=== PATIENT | female | born 1945 | race Caucasian/White ===

== ENCOUNTER 2017-12-20 07:52 | Inpatient (IN) | payer MEDICARE, BC ==
[2017-12-20] VITALS (8 sets, daily range): BP systolic 137–148; BP diastolic 54–86
[~2017-12-20] VITALS: Ht 165.1 cm; Wt 72.6 kg
--- NOTE | ~2017-12-20 | MORECARE ---
CASE MANAGEMENT DISCHARGE SUMMARY PATIENT: JULISSA GARCIA UNIT: [id number] ADM DATE: 12/20/17 AGE: 72 : 43 SEX: F ROOM/BED: D.2207 AUTHOR: YOAV SHERMAN PHYSICIAN: REFERRING PHYSICIAN: CHRIS ROMAN MD DATE OF SERVICE: 01/02/18 Discharge Plan Patient Name: JULISSA GARCIA Facility: [facility]:[place] : 1945 Planned Disposition: Home with Home Health Anticipated Discharge Date: 12/22/17 Discharge Date: Expected LOS: 2 Initial Reviewer: [email or web address] Initial Review Date: 12/20/2017 Generated: 01/02/18 3:03 pm Comments DCP- Discharge Planning Updated by [email or web address]: Sarahi Rios on 01/02/18 1:[address] Called and spoke with Korin at the [facility] faxed clinical to her, they will pick her up tomorrow DCP- Discharge Planning Updated by [email or web address]: Sarahi Rios on 01/02/18 12:[address] patient discharging home today with [facility] to resume. Family at bedside. imm served and explained. cm will continue to follow and assist with dc as needed DCP- Discharge Planning Updated by [email or web address]: Indira Kaufman on 12/30/17 12:[address] Patient Name: JULISSA GARCIA Admission Status: ER Accout number: [id number] Admission Date: 12-20-2017 : 1945 Admission Diagnosis:HEPATOMEGALY, NOT ELSEWHERE CLASSIFIED Attending: CHRIS ROMAN Current LOS: 10 Anticipated DC Date: 12-22-2017 Planned Disposition: Home with Home Health Primary Insurance: MEDICARE A & B Discharge Planning Comments: CM MET WITH PATIENT ABOUT DC PLANNING. PLAN TO DC HOME TOMORROW WITH [facility]. CM CALLEDED AND SPOKE WITH KINDRA ECHAVARRIA AT [facility] AND SHE STATED TO FAX REFERRAL. REFERRAL FAXED. IM SIGNED. I ALSO TALKED WITH HER ABOUT HOSPICE, SHE MAY BE INTERESTED BUT NO FAMILY THERE AT THE TIME. CM WILL FOLLOW AND ASSIST NEEDED WITH DC PLANNING/NEEDS. Journalism Professor: Indira Kaufman DCP- Discharge Planning Updated by [email or web address]: Jessica Gaines on 12/20/17 1:[address] Patient Name: JULISSA GARCIA Admission Status: ER Accout number: [id number] Admission Date: 12-20-2017 : 1945 Admission Diagnosis: Attending: CHRIS ROMAN Current LOS: 1 Anticipated DC Date: 12-22-2017 Planned Disposition: Home Primary Insurance: MEDICARE A & B Discharge Planning Comments: CM met with patient and her daughter, Marissa Bernal, to complete initial dc planning assessment. CM educated patient on the CM role and verbal consent given by patient to complete assessment. Patient lives at home independently with her . At discharge patient plans to return home with her if able, and feels this is a safe discharge. Patient and daughter unsure what will be needed at time of discharge. CM will continue to follow and will assist as needed with dc plans/needs. See below for more assessment information. Is the patient Alert and Oriented? Yes * How many steps to enter\exit or inside your home? none * PCP Dr. Munoz * [facility] in [place] * Preadmission Environment Home with Family * ADLs Independent * Equipment None * List name and contact numbers for known caregivers / representatives who currently or will assist patient after discharge: Kareem Paula - [phone] Marissa Paula daughter - [phone] * Verbal permission to speak to the caregivers and representatives has been obtained from the patient. Yes * Community resources currently utilized None * Has this patient been hospitalized within the prior 30 days at any hospital? No Journalism Professor: Jessica Gaines RN, [facility] DCPIA - Discharge Planning Initial Assessment Updated by [email or web address]: Jessica Gaines on 12/20/17 2:51 pm * Is the patient Alert and Oriented? Yes * How many steps to enter\exit or inside your home? none * PCP Dr. Munoz * [facility] in [place] * Preadmission Environment Home with Family * ADLs Independent * Equipment None * List name and contact numbers for known caregivers / representatives who currently or will assist patient after discharge: Kareem Paula - [phone] Marissa Paula daughter - [phone] * Verbal permission to speak to the caregivers and representatives has been obtained from the patient. Yes * Community resources currently utilized None * Has this patient been hospitalized within the prior 30 days at any hospital? No Coverage Notice Reviewer: [email or web address] Chai Kaufman Notice Issued Date-Time: 12/30/2017 13:50 Notice Type: Patient Choice Letter Notice Delivered To: Patient Relationship to Patient: Self Hand Nailer Name: Delivery Method: HAND - Hand Delivered Natty Days: Prior Verbal Notification: Recipient Understood Notice: Yes Recipient Signature: Yes Med Rec Note Co-signed by Attending: Coverage Notice Comment: RUSSELL CHAD Reviewer: [email or web address] Chai Kaufman Notice Issued Date-Time: 12/30/2017 13:50 Notice Type: IM Discharge Notice Notice Delivered To: Patient Relationship to Patient: Self Hand Nailer Name: Delivery Method: HAND - Hand Delivered Natty Days: Prior Verbal Notification: Recipient Understood Notice: Yes Recipient Signature: Yes Med Rec Note Co-signed by Attending: Coverage Notice Comment: Reviewer: [email or web address] Chai Rios Notice Issued Date-Time: 01/02/2018 13:00 Notice Type: IM Discharge Notice Notice Delivered To: Patient Relationship to Patient: Hand Nailer Name: Delivery Method: HAND - Hand Delivered Natty Days: Prior Verbal Notification: Recipient Understood Notice: Yes Recipient Signature: Yes Med Rec Note Co-signed by Attending: Coverage Notice Comment: Last DP export: 01/02/18 12:12 Patient Name: JULISSA GARCIA Page 22775 at 1404 All edits/amendments must be made on the electronic document DICTATION DATE: 01/02/18 1403 MEDICAL RECORDS COORDINATOR: STACY 01/02/18 1403 RPT#: [id number] DC DATE: STATUS: ADM IN [facility] [address] [place] [address] END OF REPORT
--- NOTE | ~2017-12-20 | MORECARE ---
CASE MANAGEMENT DISCHARGE SUMMARY PATIENT: JULISSA CAMP UNIT: [id number] ADM DATE: 12/20/17 AGE: 72 : 43 SEX: F ROOM/BED: D.2209 AUTHOR: YOAV SHERMAN PHYSICIAN: REFERRING PHYSICIAN: CHRIS ROMAN MD DATE OF SERVICE: 12/30/17 Discharge Plan Patient Name: JULISSA CAMP Facility: [facility]:[place] : 1945 Planned Disposition: Home with Home Health Anticipated Discharge Date: 12/22/17 Discharge Date: Expected LOS: 2 Initial Reviewer: [email or web address] Initial Review Date: 12/20/2017 Generated: 12/30/17 2:53 pm DCP- Discharge Planning Updated by [email or web address]: Jessica Gaines on 12/20/17 1:[address] Patient Name: JULISSA CAMP Admission Status: ER Accout number: [id number] Admission Date: 12-20-2017 : 1945 Admission Diagnosis: Attending: CHRIS ROMAN Current LOS: 1 Anticipated DC Date: 12-22-2017 Planned Disposition: Home Primary Insurance: MEDICARE A & B Discharge Planning Comments: CM met with patient and her daughter, Marissa Bernal, to complete initial dc planning assessment. CM educated patient on the CM role and verbal consent given by patient to complete assessment. Patient lives at home independently with her . At discharge patient plans to return home with her if able, and feels this is a safe discharge. Patient and daughter unsure what will be needed at time of discharge. CM will continue to follow and will assist as needed with dc plans/needs. See below for more assessment information. Is the patient Alert and Oriented? Yes * How many steps to enter\exit or inside your home? none * PCP Dr. Munoz * Pharmacy [facility] in [place] * Preadmission Environment Home with Family * ADLs Independent * Equipment None * List name and contact numbers for known caregivers / representatives who currently or will assist patient after discharge: Kareem Camp - - [phone] Marissa Bernal - daughter - [phone] * Verbal permission to speak to the caregivers and representatives has been obtained from the patient. Yes * Community resources currently utilized None * Has this patient been hospitalized within the prior 30 days at any hospital? No Truss Puller Helper: Jessica Gaines RN, [facility] DCPIA - Discharge Planning Initial Assessment Updated by [email or web address]: Jessica Gaines on 12/20/17 2:51 pm * Is the patient Alert and Oriented? Yes * How many steps to enter\exit or inside your home? none * PCP Dr. Munoz * Pharmacy [facility] in [place] * Preadmission Environment Home with Family * ADLs Independent * Equipment None * List name and contact numbers for known caregivers / representatives who currently or will assist patient after discharge: Kareem Camp - - [phone] Marissa Paula daughter - [phone] * Verbal permission to speak to the caregivers and representatives has been obtained from the patient. Yes * Community resources currently utilized None * Has this patient been hospitalized within the prior 30 days at any hospital? No Coverage Notice Reviewer: [id number] Kaufman Notice Issued Date-Time: 12/30/2017 13:50 Notice Type: IM Discharge Notice Notice Delivered To: Patient Relationship to Patient: Self Scoop Machine Operator Name: Delivery Method: HAND - Hand Delivered Natty Days: Prior Verbal Notification: Recipient Understood Notice: Yes Recipient Signature: Yes Med Rec Note Co-signed by Attending: Coverage Notice Comment: Reviewer: [id number] Kaufman Notice Issued Date-Time: 12/30/2017 13:50 Notice Type: Patient Choice Letter Notice Delivered To: Patient Relationship to Patient: Self Scoop Machine Operator Name: Delivery Method: HAND - Hand Delivered Natty Days: Prior Verbal Notification: Recipient Understood Notice: Yes Recipient Signature: Yes Med Rec Note Co-signed by Attending: Coverage Notice Comment: RUSSELL Sadler DP export: 12/20/17 2:03 Patient Name: JULISSA CAMP Page 68696 at 1353 All edits/amendments must be made on the electronic document DICTATION DATE: 12/30/17 1352 DISTRIBUTION FIELD TECHNICIAN: STACY 12/30/17 1352 RPT#: [id number] DC DATE: STATUS: ADM IN [facility] [address] [place] [address] END OF REPORT
--- NOTE | ~2017-12-20 | HEMODYNAMI ---
PATIENT:JULISSA GARCIA MEDICAL RECORD: [id number] : 41 [id number] ADMISSION DATE: 12/20/17 Generatedon:01/01/201811:33 Patient name: JULISSA GARCIA Patient #: [id number] SSN: : 1945 Date of study: 01/01/2018 Page: Of Hemodynamic Procedure Report Patient Data Patient Demographics Procedure consent was obtained First Name: JULISSA Gender: Female Last Name: RADHA : 1945 Middle Initial: JEREMIAS Age: 72 year(s) Patient #: [id number] Race: Unknown Additional ID: [id number] Contact details [address]: [address] [place] [address] [address]IVE State: [place] City: [place] Zip code: [address] Admission Admission Data Admission Date: 12/20/2017 Admission Time: 14:32 Room #: D.2207 Height (in.): 65 BSA: 1.8 (m2) Height (cm.): 165.1 BMI: 26.63 (kg/m2) Weight (lbs.): 160 Weight (kg.): 72.57 Procedure Procedure Types Cath Procedure Peripheral Cath Diagnostic Procedure Glue Spreader Peripheral Procedures Procedure Description Procedure Date Procedure Date: 01/01/2018 Procedure Start Time: 10:39 Procedure Staff Name Function Kareem Oliva MD Performing Physician Charlee Tineo RT Mechanical Laboratory Technician Daniel Magana POT LINER Additional personnel Darlin Mcpherson RN Nurse Falguni Bull RN Nurse Edwin Stevens RT Scrub Procedure Data Cath Procedure Fluoroscopy Diagnostic fluoroscopy Total fluoroscopy Time: 10 time: 10 min min Diagnostic fluoroscopy Total fluoroscopy dose: 366 dose: 366 mGy mGy Contrast Material Contrast Material Type Amount (ml) Isovue 300 55 Diagnostic catheters Device Type Used For End Catheter Placement Merit Impress KA2 5Fr 65CM catheter ([id number]) Procedure Medications Medication Administration Route Dosage Heparin Flush Bag added to field 1 bags (1000units/500ml NS) Lidocaine 1% added to field 20 Oxygen etCO2 Nasal cannula 4 l/min unlisted medication I.V. drip 3.375 g Hemodynamics Rest BSA: 1.8 (m2) O2 Consumption: Estimated: 171.46 (ml/min) O2 Consumption indexed: Estimated:95.26 (ml/min/m) Heart Rate: 81 (bpm) Snapshots Pre Cath Intra NCS Post Cath Vital Signs Time Heart Resp SPO2 etCO2 NIBP (mmHg) Rhythm Pain Sedation Rate (ipm) (%) (mmHg) Status Level (bpm) 10:27:19 79 21 19.5 128/71(101) NSR 0 (11) 10(A) , No pain 10:31:29 74 8 100 32.3 112/55(78) NSR 0 (11) 10(A) , No pain 10:35:39 76 6 100 18.7 88/52(61) NSR 0 (11) 10(A) , No pain 10:39:45 77 19 100 15.7 89/48(65) NSR 0 (11) 8(A) , No pain 10:43:49 80 6 100 29.2 99/58(95) NSR 0 (11) 8(A) , No pain 10:47:54 75 8 100 18.7 86/46(63) NSR 0 (11) 8(A) , No pain 10:51:58 85 9 100 36.8 90/51(66) NSR 0 (11) 8(A) , No pain 10:56:04 76 9 100 33 91/48(67) NSR 0 (11) 8(A) , No pain 11:00:12 76 9 100 34.5 87/45(57) NSR 0 (11) 8(A) , No pain 11:04:16 79 14 99 29.2 96/54(71) NSR 0 (11) 8(A) , No pain 11:08:23 78 15 99 10.5 92/52(71) NSR 0 (11) 8(A) , No pain 11:12:31 81 15 96 17.2 89/50(63) NSR 0 (11) 8(A) , No pain 11:16:35 74 15 98 20.2 96/54(67) NSR 0 (11) 8(A) , No pain 11:20:41 72 14 98 21.7 99/55(79) NSR 0 (11) 8(A) , No pain 11:24:47 76 17 99 1.5 108/61(85) NSR 0 (11) 8(A) , No pain 11:28:18 75 17 100 0.7 Aborted NSR 0 (11) 8(A) , No pain 11:32:17 0 No Cuff NSR 0 (11) 8(A) , No pain Medications Time Medication Route Dose Verified Delivered Reason Notes Eff ectiveness by by 10:32:41 Heparin Flush added 1 bags Kareem Serna used for Bag to Pj Olvia procedure (1000units/500ml field MD [place] NS) 10:39:40 Lidocaine 1% added 20ml Kareem Serna used for to vial Pj Oliva procedure field MD [place] 10:40:02 Oxygen etCO2 4 Kareem Montes De Oca used for Nasal l/min Pj Bull RN procedure cannula MD 10:58:27 ZOSYN I.V. 3.375g Kareem Montes De Oca per drug drip Pj Bull RN protocol MD Procedure Log Time Note 10:14:53 Patient Weight : 160 lbs 10:14:53 Patient Height : 65 inches 10:26:16 Vital chart was started 10:26:35 Time tracking: Regular hours (M-F 7:00 - 5:00) 10:27:11 Plan of Care:Hemodynamics will remain stable., Cardiac rhythm will remain stable., Comfort level will be maintained., Respiratory function will remain adequate., Patient/ family verbilizes understanding of procedure., Procedure tolerated without complication., Recovers from procedure without complications.. 10:27:27 Patient received from Med/Surg to IR Alert and oriented. Tansferred to table in Supine position. 10:27:30 Correct patient and procedure confirmed by team. 10:27:32 Signed procedure consent form obtained from patient. 10:27:35 ECG and BP/O2 sat monitors applied to patient. 10:27:37 Baseline sample Acquired. 10:27:40 Full Disclosure recording started 10:27:44 - 10:27:50 H&P Date Dictated: 01/01/2018 Within 30 days and on chart.. 10:27:54 Pre-procedure instructions explained to patient. 10:27:54 Pre-op teaching completed and patient verbalized understanding. 10:27:57 Family unavailable. 10:28:01 Patient NPO since Midnight. 10:28:26 Is the patient allergic to Iodine/contrast media? No. 10:28:30 ----Pre-sedation anethsthesia assessment.----see anesthesia orders for monitoring of patient during procedure 10:29:03 - 10:29:33 Left abdomen area was prepped with chlora-prep and draped in sterile fashion 10:29:42 Use device set IR Diagnostic 10:29:47 Sterile Angiographic Pack opened to sterile field. 10:29:49 Bag Decanter (2002S) opened to sterile field. 10:29:59 Cerna 180 wire ([id number]) opened to sterile field. 10:32:41 Heparin Flush Bag (1000units/500ml NS) 1 bags added to field was administered by Kareem Oliva MD; used for procedure; 10:35:00 CERNA 260 wire ([id number]) opened to sterile field. 10:37:37 Physician arrived 10:37:38 --------ALL STOP TIME OUT------ 10:37:39 Final Timeout: patient, procedure, and site verified with staff and physician. All members of the team are in agreement. 10:38:57 Procedure started. 10:39:06 Local anesthetic to Abdominal area with Lidocaine 1% by Kareem Oliva MD.INITIAL ACCESS ONLY 10:39:40 Lidocaine 1% 20ml vial added to field was administered by Kareem hickey MD; used for procedure; 10:40:02 Oxygen 4 l/min etCO2 Nasal cannula was administered by Falguni Bull RN; used for procedure; 10:42:20 ROADRUNNER .035 145 glide wire ([id number]) opened to sterile field. 10:45:49 A ideacts innovations Impress KA2 5Fr 65CM catheter ([id number]) was advanced over the wire and used for . 10:46:00 ARROW SUPERFLEX 8FR 45CM sheath opened to sterile field. 10:56:48 CERNA 260 wire ([id number]) opened to sterile field. 10:56:56 INFLATOR BasixTOUCH ([id number]) opened to sterile field. 10:58:27 ZOSYN 3.375g I.V. drip was administered by Falguni Bull RN; per curtis g protocol; 10:58:31 Place stent Inflation Number: 1 A Stent Visi-Pro 9 x 27 x 135 was prepped and advanced across the Undefined1. The stent was deployed at 0 ADRIAN for 0:00 (min:sec). 11:02:37 CHOICE PT Extra Support J 300cm guide wire ([id number]) opened to steril e field. 11:11:43 Place stent Inflation Number: 2 A Visipro 8 x 17 x 135 Stent ([id number]) was prepped and advanced across the Undefined1. The stent was deployed. 11:12:53 Place stent Inflation Number: 3 A EV3 Visi Pro 8.0 x 27 x 80 stent ([id number]) was prepped and advanced across the Undefined1. The stent was deployed . 11:23:42 Procedure ended.(Physican Out) 11:25:06 Fluoroscopy time 10.00 minutes. 11:25:20 Flurop Dose total: 366 11:25:20 Fluoroscopy dose: 366 mGy 11:26:10 Contrast amount:Isovue 300 55ml. 11:26:12 Procedure and supply charges have been captured, reviewed, submitted an d are correct. 11:27:42 Report given to Med/Surg. 11:33:43 Vital chart was stopped Intervention Summary Intervention Notes Time ActionType Lesion and Equipment Used Action# Pressure Duration Attributes 10:58:31 Place stent Undefined1 Stent Visi-Pro 9 1 0 00:00 x 27 x 135 11:11:43 Place stent Undefined1 Visipro 8 x 17 x 2 0 00:00 135 Stent ([id number]) 11:12:53 Place stent Undefined1 EV3 Visi Pro 8.0 3 0 00:00 x 27 x 80 stent ([id number]) Device Usage Item Name Manufacture Quantity Catalog Number [facility] Lot# / Charge Number Stock Stock Serial# Code Shawn ANGEL [id number] 26434 2 5 Angiographic Pack Health Bag Decanter Microtek 1 2001S [id number] 34844 97600 3 5 () Medical Inc. Cerna 180 wire [employer] 1 [id number] 660642 051291 16300 81 5 [id number] ([id number]) CERNA 260 wire [employer] 2 J87034 479733 45668 65157 3 5 [id number] ([id number]) [id number] ROADRUNNER .035 [employer] 1 F19120 383190 915553 92782 5 5 [id number] 145 glide wire ([id number]) Merit Impress KA2 Merit 1 [id number] 684880 30755 0 5 5Fr 65CM catheter Medical ([id number]) ARROW SUPERFLEX Teleflex 1 [id number] 279163 97274 6 5 8FR 45CM sheath INFLATOR Merit 1 [id number] 714369 793419 87072 0 5 [employer] Medical ([id number]) Stent Visi-Pro 9 Medtronic 1 [id number] 236990 02654 8 1 [id number] x 27 x 135 CHOICE PT Extra [place] 1 [id number] 172658 259357 87499 1 5 Support J 300cm Scientific guide wire ([id number]) Visipro 8 x 17 x Medtronic 1 [id number] 986810 984578 42679 8 5 [id number] 135 Stent ([id number]) EV3 Visi Pro 8.0 Medtronic 1 [id number] 531540 39983 8 5 [id number] x 27 x 80 stent ([id number]) Signature Audit [place] Stage Time Signature Unsigned Intra-Procedure 01/01/2018 Charlee Tineo 11:33:39 AM RT(R) [place] [address]
--- NOTE | ~2017-12-20 | MORECARE ---
CASE MANAGEMENT DISCHARGE SUMMARY PATIENT: JULISSA GARCIA UNIT: [id number] ADM DATE: 12/20/17 AGE: 72 : 43 SEX: F ROOM/BED: D.2207 AUTHOR: YOAV SHERMAN PHYSICIAN: REFERRING PHYSICIAN: CHRIS ROMAN MD DATE OF SERVICE: 01/04/18 Discharge Plan Patient Name: JULISSA GARCIA Facility: [facility]:[place] : 1945 Planned Disposition: Home with Home Health Anticipated Discharge Date: 12/22/17 Discharge Date: 01/02/2018 Expected LOS: 2 Initial Reviewer: [email or web address] Initial Review Date: 12/20/2017 Generated: 01/04/18 12:26 pm Comments DCP- Discharge Planning Updated by [email or web address]: Sarahi Rios on 01/02/18 1:[address] Called and spoke with Korin at [facility] faxed clinical to her, they will pick her up tomorrow DCP- Discharge Planning Updated by [email or web address]: Sarahi Rios on 01/02/18 12:[address] patient discharging home today with [facility] to resume. Family at bedside. imm served and explained. cm will continue to follow and assist with dc as needed DCP- Discharge Planning Updated by [email or web address]: Indira Kaufman on 12/30/17 12:[address] Patient Name: JULISSA GARCIA Admission Status: ER Accout number: [id number] Admission Date: 12-20-2017 : 1945 Admission Diagnosis:HEPATOMEGALY, NOT ELSEWHERE CLASSIFIED Attending: CHRIS ROMAN Current LOS: 10 Anticipated DC Date: 12-22-2017 Planned Disposition: Home with Home Health Primary Insurance: MEDICARE A & B Discharge Planning Comments: CM MET WITH PATIENT ABOUT DC PLANNING. PLAN TO DC HOME TOMORROW WITH [facility]. CM CALLEDED AND SPOKE WITH KINDRA ECHAVARRIA AT [place] AND SHE STATED TO FAX REFERRAL. REFERRAL FAXED. IM SIGNED. I ALSO TALKED WITH HER ABOUT HOSPICE, SHE MAY BE INTERESTED BUT NO FAMILY THERE AT THE TIME. CM WILL FOLLOW AND ASSIST NEEDED WITH DC PLANNING/NEEDS. Undercover Operator: Indira Kaufman DCP- Discharge Planning Updated by [email or web address]: Jessica Gaines on 12/20/17 1:[address] Patient Name: JULISSA GARCIA Admission Status: ER Accout number: [id number] Admission Date: 12-20-2017 : 1945 Admission Diagnosis: Attending: CHRIS ROMAN Current LOS: 1 Anticipated DC Date: 12-22-2017 Planned Disposition: Home Primary Insurance: MEDICARE A & B Discharge Planning Comments: CM met with patient and her daughter, Marissa Bernal, to complete initial dc planning assessment. CM educated patient on the CM role and verbal consent given by patient to complete assessment. Patient lives at home independently with her . At discharge patient plans to return home with her if able, and feels this is a safe discharge. Patient and daughter unsure what will be needed at time of discharge. CM will continue to follow and will assist as needed with dc plans/needs. See below for more assessment information. Is the patient Alert and Oriented? Yes * How many steps to enter\exit or inside your home? none * PCP Dr. Munoz * Pharmacy [facility] in [place] * Preadmission Environment Home with Family * ADLs Independent * Equipment None * List name and contact numbers for known caregivers / representatives who currently or will assist patient after discharge: Kareem Paula - [phone] Marissa Paula daughter - [phone] * Verbal permission to speak to the caregivers and representatives has been obtained from the patient. Yes * Community resources currently utilized None * Has this patient been hospitalized within the prior 30 days at any hospital? No Undercover Operator: Jessica Gaines RN, [facility] DCPIA - Discharge Planning Initial Assessment Updated by [email or web address]: Jessica Gaines on 12/20/17 2:51 pm * Is the patient Alert and Oriented? Yes * How many steps to enter\exit or inside your home? none * PCP Dr. Munoz * Pharmacy [facility] in [place] * Preadmission Environment Home with Family * ADLs Independent * Equipment None * List name and contact numbers for known caregivers / representatives who currently or will assist patient after discharge: Kareem suresh - [phone] Marissa jimenez - [phone] * Verbal permission to speak to the caregivers and representatives has been obtained from the patient. Yes * Community resources currently utilized None * Has this patient been hospitalized within the prior 30 days at any hospital? No Coverage Notice Reviewer: [email or web address] Chai Kaufman Notice Issued Date-Time: 12/30/2017 13:50 Notice Type: IM Discharge Notice Notice Delivered To: Patient Relationship to Patient: Self Prepared Foods Service Team Member Name: Delivery Method: HAND - Hand Delivered Natty Days: Prior Verbal Notification: Recipient Understood Notice: Yes Recipient Signature: Yes Med Rec Note Co-signed by Attending: Coverage Notice Comment: Reviewer: [email or web address] Chai Kaufman Notice Issued Date-Time: 12/30/2017 13:50 Notice Type: Patient Choice Letter Notice Delivered To: Patient Relationship to Patient: Self Prepared Foods Service Team Member Name: Delivery Method: HAND - Hand Delivered Natty Days: Prior Verbal Notification: Recipient Understood Notice: Yes Recipient Signature: Yes Med Rec Note Co-signed by Attending: Coverage Notice Comment: RUSSELL BONILLA Reviewer: [email or web address] Chai Rios Notice Issued Date-Time: 01/02/2018 13:00 Notice Type: IM Discharge Notice Notice Delivered To: Patient Relationship to Patient: Prepared Foods Service Team Member Name: Delivery Method: HAND - Hand Delivered Natty Days: Prior Verbal Notification: Recipient Understood Notice: Yes Recipient Signature: Yes Med Rec Note Co-signed by Attending: Coverage Notice Comment: Last DP export: 01/02/18 1:03 Patient Name: JULISSA GARCIA Page 31844 at 1127 All edits/amendments must be made on the electronic document DICTATION DATE: 01/04/18 1126 SELF SEALING FUEL TANK REPAIRER: STACY 01/04/18 1126 RPT#: [id number] DC DATE:01/02/18 STATUS: DIS IN [facility] [address] [place] [address] END OF REPORT
--- NOTE | ~2017-12-20 | MORECARE ---
CASE MANAGEMENT DISCHARGE SUMMARY PATIENT: JULISSA GARCIA UNIT: [id number] ADM DATE: 12/20/17 AGE: 72 : 43 SEX: F ROOM/BED: D.2207 AUTHOR: YOAV SHERMAN PHYSICIAN: REFERRING PHYSICIAN: CHRIS ROMAN MD DATE OF SERVICE: 01/02/18 Discharge Plan Patient Name: JULISSA GARCIA Facility: [facility]:[place] : 1945 Planned Disposition: Home with Home Health Anticipated Discharge Date: 12/22/17 Discharge Date: Expected LOS: 2 Initial Reviewer: [email or web address] Initial Review Date: 12/20/2017 Generated: 01/02/18 2:12 pm Comments DCP- Discharge Planning Updated by [email or web address]: Sarahi Rios on 01/02/18 12:[address] patient discharging home today with [facility] to resume. Family at bedside. imm served and explained. cm will continue to follow and assist with dc as needed DCP- Discharge Planning Updated by [id number]: Indira Kaufman on 12/30/17 12:[address] Patient Name: JULISSA GARCIA Admission Status: ER Accout number: [id number] Admission Date: 12-20-2017 : 1945 Admission Diagnosis:HEPATOMEGALY, NOT ELSEWHERE CLASSIFIED Attending: CHRIS ROMAN Current LOS: 10 Anticipated DC Date: 12-22-2017 Planned Disposition: Home with Home Health Primary Insurance: MEDICARE A & B Discharge Planning Comments: CM MET WITH PATIENT ABOUT DC PLANNING. PLAN TO DC HOME TOMORROW WITH [facility]. CM CALLEDED AND SPOKE WITH KINDRA ECHAVARRIA AT [facility] AND SHE STATED TO FAX REFERRAL. REFERRAL FAXED. IM SIGNED. I ALSO TALKED WITH HER ABOUT HOSPICE, SHE MAY BE INTERESTED BUT NO FAMILY THERE AT THE TIME. CM WILL FOLLOW AND ASSIST NEEDED WITH DC PLANNING/NEEDS. Db2 Systems Programmer: Indira Kaufman DCP- Discharge Planning Updated by [email or web address]: Jessica Gaines on 12/20/17 1:[address] Patient Name: JULISSA GARCIA Admission Status: ER Accout number: [id number] Admission Date: 12-20-2017 : 1945 Admission Diagnosis: Attending: CHRIS ROMAN Current LOS: 1 Anticipated DC Date: 12-22-2017 Planned Disposition: Home Primary Insurance: MEDICARE A & B Discharge Planning Comments: CM met with patient and her daughter, Marissa Bernal, to complete initial dc planning assessment. CM educated patient on the CM role and verbal consent given by patient to complete assessment. Patient lives at home independently with her . At discharge patient plans to return home with her if able, and feels this is a safe discharge. Patient and daughter unsure what will be needed at time of discharge. CM will continue to follow and will assist as needed with dc plans/needs. See below for more assessment information. Is the patient Alert and Oriented? Yes * How many steps to enter\exit or inside your home? none * PCP Dr. Munoz * Pharmacy [facility] in [place] * Preadmission Environment Home with Family * ADLs Independent * Equipment None * List name and contact numbers for known caregivers / representatives who currently or will assist patient after discharge: Kareem suresh - [phone] Mraissa Paula daughter Chai [phone] * Verbal permission to speak to the caregivers and representatives has been obtained from the patient. Yes * Community resources currently utilized None * Has this patient been hospitalized within the prior 30 days at any hospital? No Db2 Systems Programmer: Jessica Gaines RN, [facility] DCPIA - Discharge Planning Initial Assessment Updated by [email or web address]: Jessica Gaines on 12/20/17 2:51 pm * Is the patient Alert and Oriented? Yes * How many steps to enter\exit or inside your home? none * PCP Dr. Munoz * [facility] * Preadmission Environment Home with Family * ADLs Independent * Equipment None * List name and contact numbers for known caregivers / representatives who currently or will assist patient after discharge: Kareem suresh - [phone] Marissa Paula daughter - [phone] * Verbal permission to speak to the caregivers and representatives has been obtained from the patient. Yes * Community resources currently utilized None * Has this patient been hospitalized within the prior 30 days at any hospital? No Coverage Notice Reviewer: [id number] - Indira Kaufman Notice Issued Date-Time: 12/30/2017 13:50 Notice Type: IM Discharge Notice Notice Delivered To: Patient Relationship to Patient: Self Shop Mechanic Helper Name: Delivery Method: HAND - Hand Delivered Natty Days: Prior Verbal Notification: Recipient Understood Notice: Yes Recipient Signature: Yes Med Rec Note Co-signed by Attending: Coverage Notice Comment: Reviewer: [email or web address] - Indira Kaufman Notice Issued Date-Time: 12/30/2017 13:50 Notice Type: Patient Choice Letter Notice Delivered To: Patient Relationship to Patient: Self Shop Mechanic Helper Name: Delivery Method: HAND - Hand Delivered Natty Days: Prior Verbal Notification: Recipient Understood Notice: Yes Recipient Signature: Yes Med Rec Note Co-signed by Attending: Coverage Notice Comment: RUSSELL CHAD Reviewer: [email or web address] - Sarahi Rios Notice Issued Date-Time: 01/02/2018 13:00 Notice Type: IM Discharge Notice Notice Delivered To: Patient Relationship to Patient: Shop Mechanic Helper Name: Delivery Method: HAND - Hand Delivered Natty Days: Prior Verbal Notification: Recipient Understood Notice: Yes Recipient Signature: Yes Med Rec Note Co-signed by Attending: Coverage Notice Comment: Last DP export: 12/30/17 1:01 Patient Name: JULISSA GARCIA Page 68906 at 1312 All edits/amendments must be made on the electronic document DICTATION DATE: 01/02/18 1312 INSTRUMENTAL TEACHER: STACY 01/02/18 1312 RPT#: [id number] DC DATE: STATUS: ADM IN [facility] [address] [place] [address] END OF REPORT
--- NOTE | ~2017-12-20 | MORECARE ---
CASE MANAGEMENT DISCHARGE SUMMARY PATIENT: JULISSA CAMP UNIT: [id number] ADM DATE: 12/20/17 AGE: 72 : 43 SEX: F ROOM/BED: D.2207 AUTHOR: YOAV SHERMAN PHYSICIAN: REFERRING PHYSICIAN: CHRIS ROMAN MD DATE OF SERVICE: 12/20/17 Discharge Plan Patient Name: JULISSA CAMP [facility] [facility] 1945 Planned Disposition: Home Anticipated Discharge Date: 12/22/17 Discharge Date: Expected LOS: 2 Initial Reviewer: [email or web address] Initial Review Date: 12/20/2017 Generated: 12/20/17 3:52 pm DCPIA - Discharge Planning Initial Assessment Updated by [email or web address]: Jessica Gaines on 12/20/17 2:51 pm * Is the patient Alert and Oriented? Yes * How many steps to enter\exit or inside your home? none * PCP Dr. Munoz * Pharmacy [facility] in [place] * Preadmission Environment Home with Family * ADLs Independent * Equipment None * List name and contact numbers for known caregivers / representatives who currently or will assist patient after discharge: Kareem Camp - - [phone] Marissa Bernal - daughter - [phone] * Verbal permission to speak to the caregivers and representatives has been obtained from the patient. Yes * Community resources currently utilized None * Has this patient been hospitalized within the prior 30 days at any hospital? No Patient Name: JULISSA CAMP Page 14457 at 1452 All edits/amendments must be made on the electronic document DICTATION DATE: 12/20/17 145 WILLOW WORKER: STACY 12/20/17 145 RPT#: [id number] DC DATE: STATUS: ADM IN [facility] [address] [place] [address] END OF REPORT
--- NOTE | ~2017-12-20 | MORECARE ---
CASE MANAGEMENT DISCHARGE SUMMARY PATIENT: JULISSA CAMP UNIT: [id number] ADM DATE: 12/20/17 AGE: 72 : 43 SEX: F ROOM/BED: D.220 AUTHOR: YOAV SHERMAN PHYSICIAN: REFERRING PHYSICIAN: CHRIS ROMAN MD DATE OF SERVICE: 12/20/17 Discharge Plan Patient Name: JULISSA CAMP Facility: [facility]:[place] : 1945 Planned Disposition: Home Anticipated Discharge Date: 12/22/17 Discharge Date: Expected LOS: 2 Initial Reviewer: [email or web address] Initial Review Date: 12/20/2017 Generated: 12/20/17 4:03 pm DCP- Discharge Planning Updated by [email or web address]: Jessica Gaines on 12/20/17 1:[address] Patient Name: JULISSA CAMP Admission Status: ER Accout number: [id number] Admission Date: 12-20-2017 : 1945 Admission Diagnosis: Attending: CHRIS ROMAN Current LOS: 1 Anticipated DC Date: 12-22-2017 Planned Disposition: Home Primary Insurance: MEDICARE A & B Discharge Planning Comments: CM met with patient and her daughter, Marissa Bernal, to complete initial dc planning assessment. CM educated patient on the CM role and verbal consent given by patient to complete assessment. Patient lives at home independently with her . At discharge patient plans to return home with her if able, and feels this is a safe discharge. Patient and daughter unsure what will be needed at time of discharge. CM will continue to follow and will assist as needed with dc plans/needs. See below for more assessment information. Is the patient Alert and Oriented? Yes * How many steps to enter\exit or inside your home? none * PCP Dr. Munoz * Pharmacy [facility] in [place] * Preadmission Environment Home with Family * ADLs Independent * Equipment None * List name and contact numbers for known caregivers / representatives who currently or will assist patient after discharge: Kareem Camp - - [phone] Marissa Bernal - daughter - [phone] * Verbal permission to speak to the caregivers and representatives has been obtained from the patient. Yes * Community resources currently utilized None * Has this patient been hospitalized within the prior 30 days at any hospital? No Shot Core Drill Operator Helper: Jessica Gaines RN, [facility] DCPIA - Discharge Planning Initial Assessment Updated by [email or web address]: Jessica Gaines on 12/20/17 2:51 pm * Is the patient Alert and Oriented? Yes * How many steps to enter\exit or inside your home? none * PCP Dr. Munoz * Pharmacy [facility] in [place] * Preadmission Environment Home with Family * ADLs Independent * Equipment None * List name and contact numbers for known caregivers / representatives who currently or will assist patient after discharge: Kareem Camp - - [phone] Marissa Paula daughter - [phone] * Verbal permission to speak to the caregivers and representatives has been obtained from the patient. Yes * Community resources currently utilized None * Has this patient been hospitalized within the prior 30 days at any hospital? No Last DP export: 12/20/17 1:52 Patient Name: JULISSA CAMP Page 17256 at 1503 All edits/amendments must be made on the electronic document DICTATION DATE: 12/20/17 150 MANAGER MANAGED CARE: STACY 12/20/17 1502 RPT#: [id number] [place] DATE: STATUS: ADM IN [facility] [address] [place] [address] END OF REPORT
--- NOTE | ~2017-12-20 | HEMODYNAMI ---
PATIENT:JULISSA GARCIA MEDICAL RECORD: [id number] : 41 [facility] D.2207 [id number] ADMISSION DATE: 12/20/17 Generatedon:12/21/201714:06 Patient name: JULISSA GARCIA Patient #: [id number] SSN: : 1945 Date of study: 12/21/2017 Page: Of Hemodynamic Procedure Report Patient Data Patient Demographics Procedure consent was obtained First Name: JULISSA Gender: Female Last Name: RADHA : 1945 Middle Initial: JEREMIAS Age: 72 year(s) Patient #: [id number] Race: Unknown Additional ID: [id number] Contact details [address]: [address] [place] [address] DRIVE State: [place] City: [place] Zip code: [address] Admission Admission Data Admission Date: 12/20/2017 Admission Time: 14:32 Room #: D.2207 Height (in.): 65 BSA: 1.8 (m2) Height (cm.): 165.1 BMI: 26.63 (kg/m2) Weight (lbs.): 160 Weight (kg.): 72.57 Procedure Procedure Types Cath Procedure Peripheral Cath Diagnostic Procedure Construction Field Engineer Peripheral Procedures Biliary Percutaneous Biliary Int/Ext Drain Placement Procedure Description Procedure Date Procedure Date: 12/21/2017 Procedure Start Time: 13:36 Procedure Staff Name Function Kareem Oliva MD Performing Physician Charlee Tineo RT Assembler Body Falguni Bull RN Nurse Darlin Mcpherson RN Nurse Edwin Stevens RT Scrub Jorge Ludwig MD Additional personnel Procedure Data Cath Procedure Fluoroscopy Diagnostic fluoroscopy Total fluoroscopy Time: 2.8 time: 2.8 min min Diagnostic fluoroscopy Total fluoroscopy dose: 72 dose: 72 mGy mGy Contrast Material Contrast Material Type Amount (ml) Isovue 300 35 Diagnostic catheters Device Type Used For End Catheter Placement Merit Impress KA 2 5Fr 40CM catheter ([id number]) Hemodynamics Rest BSA: 1.8 (m2) O2 Consumption: Estimated: 244.8 (ml/min) O2 Consumption indexed: Estimated:136 (ml/min/m) Pre Cath Intra NCS Post Cath Procedure Log Time Note 11:16:34 Patient Height : 65 inches 11:16:38 Patient Weight : 160 lbs 13:13:09 Time tracking: Regular hours (M-F 7:00 - 5:00) 13:13:27 Plan of Care:Hemodynamics will remain stable., Cardiac rhythm will remain stable., Comfort level will be maintained., Respiratory function will remain adequate., Patient/ family verbilizes understanding of procedure., Procedure tolerated without complication., Recovers from procedure without complications.. 13:13:36 Patient received from Med/Surg to IR Alert and oriented. Tansferred to table in Supine position. 13:13:42 Signed procedure consent form obtained from patient. 13:13:48 Warm blankets applied, and jamie hugger turned on for patient comfort. 13:14:19 H&P Date Dictated: 12/21/2017 Within 30 days and on chart.. 13:14:22 Pre-procedure instructions explained to patient. 13:14:23 Pre-op teaching completed and patient verbalized understanding. 13:14:26 Family in waiting room. 13:14:28 Patient NPO since Midnight. 13:15:23 Is the patient allergic to Iodine/contrast media? No. 13:17:48 allergies: claritan, naya, adhesive tape, mobic, zoloft, bactrim,tramadol,naproxen,oxybutin,predisone,vioxx 13:17:59 - 13:18:00 ----Pre-sedation anethsthesia assessment.----SEE ANESTHESIA NOTES FOR MONITORING OF PATIENT DURING PROCEDURE 13:18:53 IV patent on arrival in port with D5/.45%NaCl at KVO. 13:19:04 abdomen area was prepped with chlora-prep and draped in sterile fashion 13:19:24 - 13:19:40 Use device set IR Diagnostic 13:19:42 Tegaderm 4 x 4 ([id number]) opened to sterile field. 13:19:43 Sterile Angiographic Pack opened to sterile field. 13:19:43 Bag Decanter (2002S) opened to sterile field. 13:20:06 KIT, INTRODUCER ACCUSTICK II W/C ([id number]) opened to sterile field. 13:20:06 [facility] .035 145 glide wire ([id number]) opened to sterile field. 13:20:49 - 13:25:55 CHIBA 20 X 15 needle opened to sterile field. 13:34:15 Physician arrived 13:36:02 --------ALL STOP TIME OUT------ 13:36:03 Final Timeout: patient, procedure, and site verified with staff and physician. All members of the team are in agreement. 13:36:11 Procedure started. 13:36:11 Full Disclosure recording started 13:36:18 Local anesthetic to Abdominal area with Lidocaine 1% by Kareem Oliva MD.INITIAL ACCESS ONLY 13:49:41 A Merit Impress KA 2 5Fr 40CM catheter ([id number]) was advanced over the wire and used for . 13:51:44 Cook BILIARY 10.2 FR drainage catheter (A80104) opened to sterile field . 13:51:59 AMPLATZ Super stiff 180cm wire ([id number]) opened to sterile field. 13:52:07 SUTURE ETHILON 2-0 BLK MONO FS opened to sterile field. 13:52:16 INFLATOR BasixTOUCH (OC8884) opened to sterile field. 13:54:11 Inflate balloon Inflation number: 1 A Evercross 7 x 40 x 80 ([id number]) was prepped and advanced across the Undefined1, then inflated. 13:55:39 ST[address] 3-Way Large Bore (D31210) opened to sterile field. 13:55:40 BAG, DRAINAGE EMPTY 600ML W/SANA (QZT335) opened to sterile field. 13:56:34 A 10FR BILIARY DRAIN WAS PLACED 14:01:43 Procedure ended.(Physican Out) 14:02:33 Fluoroscopy time 02.80 minutes. 14:02:38 Fluoroscopy dose: 72 mGy 14:02:38 Flurop Dose total: 72 14:03:08 Contrast amount:Isovue 300 35ml. 14:03:11 Procedure and supply charges have been captured, reviewed, submitted an d are correct. Intervention Summary Intervention Notes Time ActionType Lesion and Equipment Used Action# Pressure Duration Attributes 13:54:11 Inflate Undefined1 Evercross 7 x 1 0 00:00 balloon 40 x 80 ([id number]) Device Usage Item Name Manufacture Quantity Catalog Hospital Part Current Minim al Lot# / Number Charge Number Stock Stock Serial# Code Tegaderm 4 x 4 3M 1 1626W 118278 131149 549414 5 (1626W) Sterile Cardinal 1 [id number] 811466 823049 5 Angiographic Health Pack Bag Decanter Microtek 1 2001S 348754 49092 988398 5 (2001S) Medical Inc. KIT, [place] 1 [id number] 982330 720272 192988 5 INTRODUCER Scientific ACCUSTICK II W/C ([id number]) ROADRUNNER [employer] 1 F05838 619222 887409 603748 5 [id number] .035 145 glide wire (S77393) CHIBA 20 X 15 Cook Medical 1 Y84434 635491 385561 5 [id number] needle Merit Impress Merit 1 [id number] 047805 081272 5 KA 2 5Fr 40CM Medical catheter ([id number]) Cook BILIARY Cook Medical 1 R05127 317159 168659 131135 5 [id number] 10.2 FR drainage catheter (R30955) AMPLATZ Super [place] 1 [id number] 693648 943795 822776 5 stiff 180cm Scientific wire ([id number]) SUTURE ETHILON Ethicon 1 664H 225190 033261 5 2-0 BLK MONO FS INFLATOR Merit 1 OK0223 517055 845617 195014 5 BasixTOGeoIQ Medical (BU3748) Evercross 7 x Medtronic 1 [id number] 928608 34239 7351354 5 40 x 80 ([id number]) STOPCOCK 3-Way Cook Medical 1 U19933 112777 9217 524575 5 [id number] Large Bore (H72670) BAG, DRAINAGE Merit 1 MQX766 132982 465838 121541 5 EMPTY 600ML Medical W/SANA (ZGL814) Signature Audit Fluker Stage Time Signature Unsigned Intra-Procedure 12/21/2017 Charlee Tineo 2:05:58 PM RT(R) [facility] [address] [place] [address]
--- NOTE | ~2017-12-20 | MORECARE ---
CASE MANAGEMENT DISCHARGE SUMMARY PATIENT: JULSISA GARCIA UNIT: [id number] ADM DATE: 12/20/17 AGE: 72 : 41 SEX: F ROOM/BED: D.2207 AUTHOR: YOAV SHERMAN PHYSICIAN: REFERRING PHYSICIAN: CHRIS ROMAN MD DATE OF SERVICE: 12/30/17 Discharge Plan Patient Name: JULISSA GARCIA Facility: [facility]:[place] : 1945 Planned Disposition: Home with Home Health Anticipated Discharge Date: 12/22/17 Discharge Date: Expected LOS: 2 Initial Reviewer: [email or web address] Initial Review Date: 12/20/2017 Generated: 12/30/17 3:01 pm Comments DCP- Discharge Planning Updated by [email or web address]: Indira Kaufman on 12/30/17 12:[address] Patient Name: JULISSA GARCIA Admission Status: ER Accout number: [id number] Admission Date: 12-20-2017 : 1945 Admission Diagnosis:HEPATOMEGALY, NOT ELSEWHERE CLASSIFIED Attending: CHRIS ROMAN Current LOS: 10 Anticipated DC Date: 12-22-2017 Planned Disposition: Home with Home Health Primary Insurance: MEDICARE A & B Discharge Planning Comments: CM MET WITH PATIENT ABOUT DC PLANNING. PLAN TO DC HOME TOMORROW WITH [facility]. CM CALLEDED AND SPOKE WITH KINDRA ECHAVARRIA AT [facility] AND SHE STATED TO FAX REFERRAL. REFERRAL FAXED. IM SIGNED. I ALSO TALKED WITH HER ABOUT HOSPICE, SHE MAY BE INTERESTED BUT NO FAMILY THERE AT THE TIME. CM WILL FOLLOW AND ASSIST NEEDED WITH DC PLANNING/NEEDS. Steel Unloader: Indira Kaufman DCP- Discharge Planning Updated by [email or web address]: Jessica Gaines on 12/20/17 1:[address] Patient Name: JULISSA GARCIA Admission Status: ER Accout number: [id number] Admission Date: 12-20-2017 : 1945 Admission Diagnosis: Attending: CHRIS ROMAN Current LOS: 1 Anticipated DC Date: 12-22-2017 Planned Disposition: Home Primary Insurance: MEDICARE A & B Discharge Planning Comments: CM met with patient and her daughter, Marissa Bernal, to complete initial dc planning assessment. CM educated patient on the CM role and verbal consent given by patient to complete assessment. Patient lives at home independently with her . At discharge patient plans to return home with her if able, and feels this is a safe discharge. Patient and daughter unsure what will be needed at time of discharge. CM will continue to follow and will assist as needed with dc plans/needs. See below for more assessment information. Is the patient Alert and Oriented? Yes * How many steps to enter\exit or inside your home? none * PCP Dr. Munoz * Pharmacy [facility] in [place] * Preadmission Environment Home with Family * ADLs Independent * Equipment None * List name and contact numbers for known caregivers / representatives who currently or will assist patient after discharge: Kareem suresh - [phone] Marissa Paula [phone] * Verbal permission to speak to the caregivers and representatives has been obtained from the patient. Yes * Community resources currently utilized None * Has this patient been hospitalized within the prior 30 days at any hospital? No Steel Unloader: Jessica Gaines RN, [facility] DCPIA - Discharge Planning Initial Assessment Updated by [email or web address]: Jessica Gaines on 12/20/17 2:51 pm * Is the patient Alert and Oriented? Yes * How many steps to enter\exit or inside your home? none * PCP Dr. Munoz * [facility] * Preadmission Environment Home with Family * ADLs Independent * Equipment None * List name and contact numbers for known caregivers / representatives who currently or will assist patient after discharge: Kareem suresh - [phone] Marissa jimenez - [phone] * Verbal permission to speak to the caregivers and representatives has been obtained from the patient. Yes * Community resources currently utilized None * Has this patient been hospitalized within the prior 30 days at any hospital? No External Providers External Provider: [facility] Next Contact Date: Service Request Date: Service Type: Resolution: Reviewer: Comments: Coverage Notice Reviewer: [email or web address] - Indira Kaufman Notice Issued Date-Time: 12/30/2017 13:50 Notice Type: IM Discharge Notice Notice Delivered To: Patient Relationship to Patient: Self Baseball Glove Shaper Name: Delivery Method: HAND - Hand Delivered Natty Days: Prior Verbal Notification: Recipient Understood Notice: Yes Recipient Signature: Yes Med Rec Note Co-signed by Attending: Coverage Notice Comment: Reviewer: [email or web address] Chai Kaufman Notice Issued Date-Time: 12/30/2017 13:50 Notice Type: Patient Choice Letter Notice Delivered To: Patient Relationship to Patient: Self Baseball Glove Shaper Name: Delivery Method: HAND - Hand Delivered Natty Days: Prior Verbal Notification: Recipient Understood Notice: Yes Recipient Signature: Yes Med Rec Note Co-signed by Attending: Coverage Notice Comment: RUSSELL JENNIFER Last DP export: 12/30/17 12:53 Patient Name: JULISSA GARCIA Page 43061 at 1401 All edits/amendments must be made on the electronic document DICTATION DATE: 12/30/171399 SALVAGE WINDER: STACY 12/30/17 1400 RPT#: [id number] DC DATE: STATUS: ADM IN [facility] [address] [place] [address] END OF REPORT
[~2017-12-20 07:52] MED LIST: COUMADIN5 MG PO; FERRLECIT62.5 MG/2 IVPB; FLAGYL500 MG; FLAGYL500 MG PO; HYDROCODON-ACE1 EAC7 PO; LEVOTHROID75 MCG PO; NEOMYCIN SULFA500 MG; NORCO 5/325 TAB1 TA1 PO; NYSTATIN ORAL SU5 ML PO; PHENOBARBITAL32.4 MG PO; PRILOSEC20 MG PO; TIROSINT88 MCG PO; TRANSDERM-SCOP1.5 MG TD; TRAZODONE HCL50 MG PO; TYLENOL 325 MG325 MG PO; ZOFRAN ODT4 MG/UDTAB PO
[2017-12-20 08:28] LABS: BASOPHILS 0.1 % (0-2); EOSINOPHILS 0 % (0-7); HEMATOCRIT 42.4 % (36.0-48.0); HEMOGLOBIN 14.1 g/dL (12-16); IMMATURE GRANULOCYTES 0.1 % (0-5); LYMPHOCYTES 5.4 % (15-50); MCH 32.3 pg (26.0-34.0); MCHC 33.3 g/dL (31.0-37.0); MCV 97.2 fL (80.0-100.0); MEAN PLATELET VOLUME 8.8 fL (7.4-10.4); MONOCYTES 7.7 % (2-11); NEUTROPHILS 86.7 % (40-80); PLATELET COUNT 277 10x3/uL (130-400); RBC 4.36 10x6/uL (4.00-5.40); RDW 13.4 % (11.5-14.5); WBC 7.7 10x3/uL (4.8-10.8)
[2017-12-20 08:43] LABS: ALBUMIN 3.9 g/dL (3.4-5.0); ALKALINE PHOSPHATASE 444 U/L (46-116); ALT (SGPT) 543 U/L (10-68); BILIRUBIN - TOTAL 5.19 mg/dL (0.2-1.3); CALC OSMOLALITY 275 mosm/kg (275-300); CALCIUM 9.7 mg/dL (8.5-10.1); CARBON DIOXIDE 25.9 mmol/L (21.0-32.0); CHLORIDE - SERUM 98 mmol/L (98-107); CREATININE - SERUM 0.8 mg/dL (0.6-1.3); GLUCOSE 175 mg/dL (74-106); POTASSIUM - SERUM 3.8 mmol/L (3.5-5.1); PROTEIN - SERUM 8.3 g/dL (6.4-8.2); SODIUM 137 mmol/L (136-145); UREA NITROGEN 7 mg/dL (7-18); eGFR NON AFRICAN AMERICAN 74 mL/min (90-120)
[2017-12-20 08:45] LABS: APTT 25.1 SECONDS (22.8-39.4); INR 0.94 (0.85-1.17); PROTIME 12.2 SECONDS (11.6-15.0)
[2017-12-20 08:46] LABS: D-DIMER-QUANTITATIVE 1.32 ug/mLFEU (0.20-0.54)
[2017-12-20 08:49] LABS: AMYLASE - SERUM 77 U/L (25-115); LIPASE 147 U/L (73-393)
[2017-12-20 08:50] LABS: CREATINE KINASE 43 UL (21-215); MAGNESIUM - SERUM 1.9 mg/dL (1.8-2.4); TROPONIN-I < 0.017 ng/mL (0.000-0.060)
[2017-12-20 08:57] LABS: CKMB 0.5 U/L (0.0-3.6)
[2017-12-20 18:22] LABS: APPEARANCE CLEAR (CLEAR); COLOR DK YELLOW (YELLOW); GLUCOSE NEGATIVE (NEGATIVE); KETONE NEGATIVE (NEGATIVE); NITRITE NEGATIVE (NEGATIVE); PROTEIN 1+ mg/dL (NEGATIVE)
[2017-12-20 18:23] LABS: BACTERIA FEW /hpf (NONE SEEN); BILIRUBIN 3+ (NEGATIVE); EPITHELIAL CELLS RARE /hpf (0-5); RED CELLS - URINE 0-5 /hpf (0-5); UROBILINOGEN NORMAL (NORMAL); WHITE CELLS - URINE OCC /hpf (0-5)
[2017-12-21] VITALS (9 sets, daily range): BP systolic 104–157; BP diastolic 30–78; Ht 165.1 cm; Wt 72.6 kg
[2017-12-21 04:47] LABS: BASOPHILS 0.3 % (0-2); EOSINOPHILS 0.3 % (0-7); HEMATOCRIT 38.9 % (36.0-48.0); HEMOGLOBIN 12.8 g/dL (12-16); IMMATURE GRANULOCYTES 0.3 % (0-5); LYMPHOCYTES 12.7 % (15-50); MCH 32.3 pg (26.0-34.0); MCHC 32.9 g/dL (31.0-37.0); MCV 98.2 fL (80.0-100.0); MEAN PLATELET VOLUME 8.8 fL (7.4-10.4); MONOCYTES 9.5 % (2-11); NEUTROPHILS 76.9 % (40-80); PLATELET COUNT 234 10x3/uL (130-400); RBC 3.96 10x6/uL (4.00-5.40); RDW 13.6 % (11.5-14.5); WBC 7.7 10x3/uL (4.8-10.8)
[2017-12-21 04:59] LABS: ALBUMIN 3.1 g/dL (3.4-5.0); ALKALINE PHOSPHATASE 426 U/L (46-116); ALT (SGPT) 444 U/L (10-68); CALCIUM 8.8 mg/dL (8.5-10.1); CARBON DIOXIDE 30.7 mmol/L (21.0-32.0); CHLORIDE - SERUM 98 mmol/L (98-107); CREATININE - SERUM 0.7 mg/dL (0.6-1.3); POTASSIUM - SERUM 3.7 mmol/L (3.5-5.1); SODIUM 135 mmol/L (136-145); eGFR NON AFRICAN AMERICAN 87 mL/min (90-120)
[2017-12-21 05:01] LABS: CALC OSMOLALITY 269 mosm/kg (275-300); GLUCOSE 114 mg/dL (74-106); UREA NITROGEN 9 mg/dL (7-18)
[2017-12-21 10:00] LABS: APTT 29.8 SECONDS (22.8-39.4); INR 0.96 (0.85-1.17); PROTIME 12.4 SECONDS (11.6-15.0)
[2017-12-22] VITALS: BP 141/54
[2017-12-22 04:00] VITALS: BP 114/53
[2017-12-22 05:46] LABS: BASOPHILS 0.7 % (0-2); HEMATOCRIT 36.5 % (36.0-48.0); HEMOGLOBIN 11.8 g/dL (12-16); IMMATURE GRANULOCYTES 0.5 % (0-5); LYMPHOCYTES 18.3 % (15-50); MCH 32.2 pg (26.0-34.0); MCHC 32.3 g/dL (31.0-37.0); MCV 99.5 fL (80.0-100.0); MEAN PLATELET VOLUME 8.9 fL (7.4-10.4); MONOCYTES 8.1 % (2-11); NEUTROPHILS 71.4 % (40-80); PLATELET COUNT 234 10x3/uL (130-400); RBC 3.67 10x6/uL (4.00-5.40); RDW 13.9 % (11.5-14.5); WBC 5.9 10x3/uL (4.8-10.8)
[2017-12-22 06:03] LABS: ALBUMIN 2.7 g/dL (3.4-5.0); ANION GAP 12.9 mmol/L (8-16); BILIRUBIN - TOTAL 4.86 mg/dL (0.2-1.3); CALCIUM 9.1 mg/dL (8.5-10.1); CREATININE - SERUM 0.8 mg/dL (0.6-1.3); POTASSIUM - SERUM 3.9 mmol/L (3.5-5.1); PROTEIN - SERUM 6.4 g/dL (6.4-8.2)
[2017-12-22 09:37] VITALS: BP 130/78
[2017-12-22 11:58] VITALS: BP 138/79
[2017-12-22 19:51] VITALS: BP 128/59
[2017-12-23 04:00] VITALS: BP 103/55
[2017-12-23 05:21] LABS: BASOPHILS 0.3 % (0-2); EOSINOPHILS 1.2 % (0-7); HEMATOCRIT 38.5 % (36.0-48.0); HEMOGLOBIN 12.5 g/dL (12-16); IMMATURE GRANULOCYTES 0.6 % (0-5); LYMPHOCYTES 15.7 % (15-50); MCH 32.1 pg (26.0-34.0); MCHC 32.5 g/dL (31.0-37.0); MEAN PLATELET VOLUME 8.7 fL (7.4-10.4); NEUTROPHILS 73.2 % (40-80); PLATELET COUNT 241 10x3/uL (130-400); RBC 3.89 10x6/uL (4.00-5.40); RDW 13.7 % (11.5-14.5); WBC 6.9 10x3/uL (4.8-10.8)
[2017-12-23 05:47] LABS: ALBUMIN 2.6 g/dL (3.4-5.0); ANION GAP 17.3 mmol/L (8-16); BILIRUBIN - TOTAL 3.15 mg/dL (0.2-1.3); CALCIUM 8.4 mg/dL (8.5-10.1); CARBON DIOXIDE 24.3 mmol/L (21.0-32.0); CREATININE - SERUM 0.8 mg/dL (0.6-1.3); MAGNESIUM - SERUM 1.7 mg/dL (1.8-2.4); POTASSIUM - SERUM 3.6 mmol/L (3.5-5.1); PROTEIN - SERUM 5.7 g/dL (6.4-8.2)
[2017-12-23 09:22] VITALS: BP 113/63
[2017-12-23 15:23] VITALS: BP 101/45
[2017-12-23 19:56] VITALS: BP 134/71
[2017-12-24 04:00] VITALS: BP 127/67
[2017-12-24 04:43] LABS: EOSINOPHILS 5.1 % (0-7); HEMOGLOBIN 11.2 g/dL (12-16); IMMATURE GRANULOCYTES 0.6 % (0-5); LYMPHOCYTES 19.5 % (15-50); MCH 31.7 pg (26.0-34.0); MCV 99.2 fL (80.0-100.0); MEAN PLATELET VOLUME 8.7 fL (7.4-10.4); MONOCYTES 13.7 % (2-11); NEUTROPHILS 60.1 % (40-80); PLATELET COUNT 241 10x3/uL (130-400); RBC 3.53 10x6/uL (4.00-5.40); RDW 13.7 % (11.5-14.5)
[2017-12-24 04:46] LABS: WBC 5.1 10x3/uL (4.8-10.8)
[2017-12-24 05:00] LABS: ALBUMIN 2.5 g/dL (3.4-5.0); ANION GAP 16.3 mmol/L (8-16); BILIRUBIN - TOTAL 2.36 mg/dL (0.2-1.3); CALCIUM 8.4 mg/dL (8.5-10.1); CARBON DIOXIDE 25.1 mmol/L (21.0-32.0); CREATININE - SERUM 0.8 mg/dL (0.6-1.3); POTASSIUM - SERUM 3.4 mmol/L (3.5-5.1); PROTEIN - SERUM 5.9 g/dL (6.4-8.2)
[2017-12-24 05:05] LABS: MAGNESIUM - SERUM 1.9 mg/dL (1.8-2.4)
[2017-12-24 08:52] VITALS: BP 136/64
[2017-12-24 12:32] VITALS: BP 128/66
[2017-12-24 16:39] VITALS: BP 142/76
[2017-12-24 21:25] VITALS: BP 128/76
[2017-12-25] VITALS (11 sets, daily range): BP systolic 91–142; BP diastolic 47–83
[2017-12-25 04:45] LABS: BASOPHILS 0.2 % (0-2); EOSINOPHILS 1.6 % (0-7); HEMOGLOBIN 12.1 g/dL (12-16); IMMATURE GRANULOCYTES 0.2 % (0-5); LYMPHOCYTES 5.2 % (15-50); MCH 32.3 pg (26.0-34.0); MCHC 32.7 g/dL (31.0-37.0); MCV 98.7 fL (80.0-100.0); MEAN PLATELET VOLUME 8.9 fL (7.4-10.4); MONOCYTES 2.7 % (2-11); NEUTROPHILS 90.1 % (40-80); PLATELET COUNT 214 10x3/uL (130-400); RBC 3.75 10x6/uL (4.00-5.40); RDW 13.5 % (11.5-14.5); WBC 5.6 10x3/uL (4.8-10.8)
[2017-12-25 04:50] LABS: INR 1.01 (0.85-1.17)
[2017-12-25 05:11] LABS: ANION GAP 15.6 mmol/L (8-16); BILIRUBIN - TOTAL 2.03 mg/dL (0.2-1.3); CALCIUM 8.2 mg/dL (8.5-10.1); CARBON DIOXIDE 27.3 mmol/L (21.0-32.0); CREATININE - SERUM 0.9 mg/dL (0.6-1.3); MAGNESIUM - SERUM 1.5 mg/dL (1.8-2.4); PROTEIN - SERUM 7.1 g/dL (6.4-8.2)
[2017-12-25 05:17] LABS: POTASSIUM - SERUM 2.9 mmol/L (3.5-5.1)
[2017-12-26 05:10] VITALS: BP 100/51
[2017-12-26 05:44] LABS: BASOPHILS 0.4 % (0-2); EOSINOPHILS 1.4 % (0-7); HEMATOCRIT 31.2 % (36.0-48.0); HEMOGLOBIN 10.1 g/dL (12-16); IMMATURE GRANULOCYTES 0.4 % (0-5); LYMPHOCYTES 8.5 % (15-50); MCH 31.9 pg (26.0-34.0); MCHC 32.4 g/dL (31.0-37.0); MCV 98.4 fL (80.0-100.0); MEAN PLATELET VOLUME 9.3 fL (7.4-10.4); MONOCYTES 8.7 % (2-11); NEUTROPHILS 80.6 % (40-80); PLATELET COUNT 180 10x3/uL (130-400); RBC 3.17 10x6/uL (4.00-5.40); RDW 13.7 % (11.5-14.5); WBC 5.6 10x3/uL (4.8-10.8)
[2017-12-26 06:36] LABS: ALBUMIN 2.5 g/dL (3.4-5.0); ANION GAP 11.8 mmol/L (8-16); BILIRUBIN - TOTAL 1.62 mg/dL (0.2-1.3); CARBON DIOXIDE 27.4 mmol/L (21.0-32.0); CREATININE - SERUM 0.8 mg/dL (0.6-1.3); POTASSIUM - SERUM 3.2 mmol/L (3.5-5.1)
[2017-12-26 06:37] LABS: MAGNESIUM - SERUM 2.3 mg/dL (1.8-2.4)
[2017-12-26 08:30] VITALS: BP 107/52
[2017-12-26 12:45] VITALS: BP 125/69
[2017-12-26 20:49] VITALS: BP 118/66
[2017-12-27 04:35] VITALS: BP 110/66
[2017-12-27 05:56] LABS: BASOPHILS 0.5 % (0-2); HEMATOCRIT 32.1 % (36.0-48.0); HEMOGLOBIN 10.2 g/dL (12-16); IMMATURE GRANULOCYTES 0.5 % (0-5); LYMPHOCYTES 14.7 % (15-50); MCH 31.5 pg (26.0-34.0); MCHC 31.8 g/dL (31.0-37.0); MCV 99.1 fL (80.0-100.0); MEAN PLATELET VOLUME 9.5 fL (7.4-10.4); MONOCYTES 11.7 % (2-11); NEUTROPHILS 69.6 % (40-80); PLATELET COUNT 181 10x3/uL (130-400); RBC 3.24 10x6/uL (4.00-5.40); RDW 13.6 % (11.5-14.5)
[2017-12-27 05:58] LABS: WBC 3.7 10x3/uL (4.8-10.8)
[2017-12-27 06:32] LABS: ALBUMIN 2.4 g/dL (3.4-5.0); ANION GAP 11.8 mmol/L (8-16); BILIRUBIN - TOTAL 1.08 mg/dL (0.2-1.3); CALCIUM 8.4 mg/dL (8.5-10.1); CARBON DIOXIDE 27.9 mmol/L (21.0-32.0); CREATININE - SERUM 0.8 mg/dL (0.6-1.3); POTASSIUM - SERUM 3.7 mmol/L (3.5-5.1)
[2017-12-27 08:49] VITALS: BP 129/65
[2017-12-27 16:45] VITALS: BP 110/65
[2017-12-27 19:44] LABS: APPEARANCE CLEAR (CLEAR); BILIRUBIN NEGATIVE (NEGATIVE); COLOR YELLOW (YELLOW); GLUCOSE NEGATIVE (NEGATIVE); KETONE NEGATIVE (NEGATIVE); NITRITE NEGATIVE (NEGATIVE); PROTEIN NEGATIVE (NEGATIVE); SPECIFIC GRAVITY 1.005 (1.005-1.020); UROBILINOGEN NORMAL (NORMAL)
[2017-12-27 19:46] LABS: BACTERIA FEW /hpf (NONE SEEN); EPITHELIAL CELLS RARE /hpf (0-5); RED CELLS - URINE 0-5 /hpf (0-5); WHITE CELLS - URINE RARE /hpf (0-5)
[2017-12-27 21:05] VITALS: BP 124/64
[2017-12-28 04:35] VITALS: BP 110/65
[2017-12-28 07:48] LABS: HEMATOCRIT 33.3 % (36.0-48.0); HEMOGLOBIN 11.2 g/dL (12-16); LYMPHOCYTES 24.8 % (15-50); MCH 32.3 pg (26.0-34.0); MCHC 33.6 g/dL (31.0-37.0); MEAN PLATELET VOLUME 8.6 fL (7.4-10.4); NEUTROPHILS 58.7 % (40-80); RBC 3.47 10x6/uL (4.00-5.40); RDW 12.8 % (11.5-14.5); WBC 3.4 10x3/uL (4.8-10.8)
[2017-12-28 07:53] LABS: PLATELET COUNT 256 10x3/uL (130-400)
[2017-12-28 07:59] LABS: ALBUMIN 2.6 g/dL (3.4-5.0); ANION GAP 11.9 mmol/L (8-16); BILIRUBIN - TOTAL 0.95 mg/dL (0.2-1.3); CALCIUM 8.7 mg/dL (8.5-10.1); CARBON DIOXIDE 29.7 mmol/L (21.0-32.0); CREATININE - SERUM 0.8 mg/dL (0.6-1.3); POTASSIUM - SERUM 3.6 mmol/L (3.5-5.1); PROTEIN - SERUM 6.9 g/dL (6.4-8.2)
[2017-12-28 08:21] VITALS: BP 127/97
[2017-12-28 10:20] LABS: INR 1.09 (0.85-1.17); PROTIME 13.7 SECONDS (11.6-15.0)
[2017-12-28 12:36] VITALS: BP 133/71
[2017-12-28 16:30] VITALS: BP 123/76
[2017-12-28 20:24] VITALS: BP 117/71
[2017-12-29 05:02] VITALS: BP 114/64
[2017-12-29 05:42] LABS: BASOPHILS 0.8 % (0-2); EOSINOPHILS 3.3 % (0-7); HEMATOCRIT 33.8 % (36.0-48.0); HEMOGLOBIN 10.9 g/dL (12-16); IMMATURE GRANULOCYTES 0.5 % (0-5); LYMPHOCYTES 29.8 % (15-50); MCH 31.5 pg (26.0-34.0); MCHC 32.2 g/dL (31.0-37.0); MCV 97.7 fL (80.0-100.0); MEAN PLATELET VOLUME 9.2 fL (7.4-10.4); MONOCYTES 17.3 % (2-11); NEUTROPHILS 48.3 % (40-80); PLATELET COUNT 277 10x3/uL (130-400); RBC 3.46 10x6/uL (4.00-5.40); RDW 13.5 % (11.5-14.5)
[2017-12-29 06:11] LABS: ALBUMIN 2.4 g/dL (3.4-5.0); ANION GAP 10.6 mmol/L (8-16); BILIRUBIN - TOTAL 0.92 mg/dL (0.2-1.3); CALCIUM 8.2 mg/dL (8.5-10.1); CARBON DIOXIDE 31.1 mmol/L (21.0-32.0); CREATININE - SERUM 0.8 mg/dL (0.6-1.3); POTASSIUM - SERUM 3.7 mmol/L (3.5-5.1); PROTEIN - SERUM 6.3 g/dL (6.4-8.2)
[2017-12-29 08:33] VITALS: BP 109/62
[2017-12-29 12:45] VITALS: BP 112/67
[2017-12-29 17:17] VITALS: BP 113/59
[2017-12-29 21:08] VITALS: BP 98/57
[2017-12-30 05:16] VITALS: BP 103/71
[2017-12-30 05:55] LABS: BASOPHILS 0.6 % (0-2); EOSINOPHILS 2.2 % (0-7); HEMATOCRIT 37.2 % (36.0-48.0); HEMOGLOBIN 12.2 g/dL (12-16); IMMATURE GRANULOCYTES 0.9 % (0-5); LYMPHOCYTES 18.9 % (15-50); MCH 31.7 pg (26.0-34.0); MCHC 32.8 g/dL (31.0-37.0); MCV 96.6 fL (80.0-100.0); MEAN PLATELET VOLUME 8.9 fL (7.4-10.4); MONOCYTES 12.8 % (2-11); NEUTROPHILS 64.6 % (40-80); RBC 3.85 10x6/uL (4.00-5.40); RDW 13.4 % (11.5-14.5)
[2017-12-30 06:01] LABS: PLATELET COUNT 356 10x3/uL (130-400); WBC 8.1 10x3/uL (4.8-10.8)
[2017-12-30 06:12] LABS: ALBUMIN 2.6 g/dL (3.4-5.0); ANION GAP 11.9 mmol/L (8-16); BILIRUBIN - TOTAL 0.82 mg/dL (0.2-1.3); CALCIUM 8.5 mg/dL (8.5-10.1); CARBON DIOXIDE 28.5 mmol/L (21.0-32.0); CREATININE - SERUM 0.8 mg/dL (0.6-1.3); POTASSIUM - SERUM 3.4 mmol/L (3.5-5.1); PROTEIN - SERUM 6.4 g/dL (6.4-8.2)
[2017-12-30 09:38] VITALS: BP 97/60
[2017-12-30 13:20] VITALS: BP 109/58
[2017-12-30 17:39] VITALS: BP 118/58
[2017-12-30 20:00] VITALS: BP 104/66
[2017-12-31] VITALS: BP 91/47
[2017-12-31 04:00] VITALS: BP 90/44
[2017-12-31 04:36] LABS: BASOPHILS 0.6 % (0-2); HEMOGLOBIN 11.2 g/dL (12-16); IMMATURE GRANULOCYTES 1.7 % (0-5); LYMPHOCYTES 18.8 % (15-50); MCH 31.4 pg (26.0-34.0); MEAN PLATELET VOLUME 8.8 fL (7.4-10.4); MONOCYTES 9.3 % (2-11); NEUTROPHILS 66.6 % (40-80); PLATELET COUNT 376 10x3/uL (130-400); RBC 3.57 10x6/uL (4.00-5.40); RDW 13.5 % (11.5-14.5); WBC 8.3 10x3/uL (4.8-10.8)
[2017-12-31 05:02] LABS: ALBUMIN 2.5 g/dL (3.4-5.0); ANION GAP 11.1 mmol/L (8-16); BILIRUBIN - TOTAL 0.71 mg/dL (0.2-1.3); CARBON DIOXIDE 26.4 mmol/L (21.0-32.0); CREATININE - SERUM 0.8 mg/dL (0.6-1.3); POTASSIUM - SERUM 3.5 mmol/L (3.5-5.1); PROTEIN - SERUM 6.2 g/dL (6.4-8.2)
[2017-12-31 07:55] VITALS: BP 97/55
[2017-12-31 12:30] VITALS: BP 106/61
[2017-12-31 15:30] VITALS: BP 97/45
[2017-12-31 21:47] VITALS: BP 87/43
[2018-01-01 05:43] VITALS: BP 107/65
[2018-01-01 07:11] LABS: BASOPHILS 0.5 % (0-2); EOSINOPHILS 1.3 % (0-7); HEMATOCRIT 34.3 % (36.0-48.0); HEMOGLOBIN 11.2 g/dL (12-16); IMMATURE GRANULOCYTES 0.7 % (0-5); LYMPHOCYTES 11.1 % (15-50); MCH 31.5 pg (26.0-34.0); MCHC 32.7 g/dL (31.0-37.0); MCV 96.3 fL (80.0-100.0); MEAN PLATELET VOLUME 8.7 fL (7.4-10.4); MONOCYTES 8.2 % (2-11); NEUTROPHILS 78.2 % (40-80); PLATELET COUNT 386 10x3/uL (130-400); RBC 3.56 10x6/uL (4.00-5.40); RDW 13.5 % (11.5-14.5)
[2018-01-01 07:15] LABS: WBC 11.5 10x3/uL (4.8-10.8)
[2018-01-01 07:39] LABS: ALBUMIN 2.5 g/dL (3.4-5.0); ANION GAP 11.1 mmol/L (8-16); BILIRUBIN - DIRECT 0.59 mg/dL (0.00-0.30); BILIRUBIN - INDIRECT 0.26 mg/dL (0.00-1.00); BILIRUBIN - TOTAL 0.85 mg/dL (0.2-1.3); CALCIUM 7.9 mg/dL (8.5-10.1); CARBON DIOXIDE 27.4 mmol/L (21.0-32.0); CREATININE - SERUM 0.9 mg/dL (0.6-1.3); POTASSIUM - SERUM 3.5 mmol/L (3.5-5.1); PROTEIN - SERUM 6.5 g/dL (6.4-8.2)
[2018-01-01 07:41] LABS: APTT 31.2 SECONDS (22.8-39.4); INR 1.34 (0.85-1.17); PROTIME 16.2 SECONDS (11.6-15.0)
[2018-01-01 08:30] VITALS: BP 99/54
[2018-01-01 14:26] VITALS: BP 116/67
[2018-01-01 20:49] VITALS: BP 92/39
[2018-01-02 00:35] VITALS: BP 95/54
[2018-01-02 04:42] VITALS: BP 103/55
[2018-01-02 06:16] LABS: ALBUMIN 2.5 g/dL (3.4-5.0); ANION GAP 12.5 mmol/L (8-16); BILIRUBIN - TOTAL 0.78 mg/dL (0.2-1.3); CALCIUM 8.3 mg/dL (8.5-10.1); CARBON DIOXIDE 28.5 mmol/L (21.0-32.0); CREATININE - SERUM 0.8 mg/dL (0.6-1.3); PROTEIN - SERUM 6.5 g/dL (6.4-8.2)
[2018-01-02 07:52] LABS: BASOPHILS 0.4 % (0-2); EOSINOPHILS 1.7 % (0-7); HEMATOCRIT 33.8 % (36.0-48.0); HEMOGLOBIN 11.1 g/dL (12-16); LYMPHOCYTES 12.4 % (15-50); MCH 31.7 pg (26.0-34.0); MCHC 32.8 g/dL (31.0-37.0); MCV 96.6 fL (80.0-100.0); MEAN PLATELET VOLUME 8.9 fL (7.4-10.4); MONOCYTES 8.5 % (2-11); PLATELET COUNT 467 10x3/uL (130-400); RDW 13.6 % (11.5-14.5); WBC 7.3 10x3/uL (4.8-10.8)
[2018-01-02 08:33] VITALS: BP 103/57
[2018-01-02] MEDS ORDERED: FLORAJEN3 CAPS460 MG PO (12:08)
[2018-01-02] MEDS ORDERED: COLACE100 MG PO (12:08)
[2018-01-02] MEDS ORDERED: ZOFRAN ODT4 MG/UDTAB PO (12:11)
[2018-01-02 12:45] VITALS: BP 103/65
[2018-01-03 14:23] LABS: OVA + PARASITE EXAM Final report (())
== END 2018-01-02 14:45 | disposition home health service (06) | DRG 408 ==
LOC: D.ER 07:52 → D.MS 14:32 → D.EDHOLD 14:32 → D.MS 14:37
PROVIDERS: Emergency Medicine; Family Medicine; Internal Medicine Nephrology; Radiology Diagnostic Radiology; Specialist
PROC: BF111ZZ Fluoroscopy of Biliary and Pancreatic Ducts using Low Osmolar Contrast (ICD-10-PCS; 2017-12-21)
PROC: 0F9630Z Drainage of Left Hepatic Duct with Drainage Device, Percutaneous Approach (ICD-10-PCS; 2017-12-25)
PROC: 0WBH3ZX Excision of Retroperitoneum, Percutaneous Approach, Diagnostic (ICD-10-PCS; 2017-12-25)
PROC: BF101ZZ Fluoroscopy of Bile Ducts using Low Osmolar Contrast (ICD-10-PCS; 2018-01-01)
PROC: 0F7 Hepatobiliary System and Pancreas, Dilation (ICD-10-PCS; 2018-01-01)
PROC: 0FPB30Z Removal of Drainage Device from Hepatobiliary Duct, Percutaneous Approach (ICD-10-PCS; principal; 2018-01-01 10:39)
DX: C78.7 Secondary malignant neoplasm of liver and intrahepatic bile duct (principal); K83.1 Obstruction of bile duct; C18.9 Malignant neoplasm of colon, unspecified; C78.6 Secondary malignant neoplasm of retroperitoneum and peritoneum; E03.9 Hypothyroidism, unspecified; K21.9 Gastro-esophageal reflux disease without esophagitis; G62.9 Polyneuropathy, unspecified; F41.9 Anxiety disorder, unspecified; G40.909 Epilepsy, unspecified, not intractable, without status epilepticus; D50.9 Iron deficiency anemia, unspecified; R19.7 Diarrhea, unspecified; L98.9 Disorder of the skin and subcutaneous tissue, unspecified

== ENCOUNTER 2018-04-03 13:18 | Inpatient (IN) | payer MEDICARE, BC ==
[~2018-04-03] VITALS: Ht 165.1 cm; Wt 61.2 kg
[~2018-04-03 13:18] MED LIST changes: +COLACE100 MG PO; +FLORAJEN3 CAPS460 MG PO
--- NOTE | 2018-04-03 14:58 | NUR ---
PATIENT WITH LEFT CHEST INFUSA PORT, PORT ACCESSED, GOOD BLOOD RETURN, EASY FLUSH, 1 LTR NS BOLAS STARTED AT 999CC PER HOUR, BOLAS COMPLETE AT 1458. HEART RATE DECREASED FROM 160 TO 108 AFTYER BOLAS.
[2018-04-03 15:00] VITALS: BP 84/44
[2018-04-03 15:17] LABS: BASOPHILS 0.1 % (0-2); EOSINOPHILS 0 % (0-7); HEMATOCRIT 33.2 % (36.0-48.0); HEMOGLOBIN 10.8 g/dL (12-16); IMMATURE GRANULOCYTES 0.4 % (0-5); LYMPHOCYTES 1.4 % (15-50); MCHC 32.5 g/dL (31.0-37.0); MCV 92.2 fL (80.0-100.0); MEAN PLATELET VOLUME 8.7 fL (7.4-10.4); MONOCYTES 2.9 % (2-11); NEUTROPHILS 95.2 % (40-80); RDW 13.7 % (11.5-14.5); WBC 14.8 10x3/uL (4.8-10.8)
--- NOTE | 2018-04-03 15:21 | NUR ---
PT IS IN PAIN AND FAMILY MEMBER STATES IT IS TIME TO PLACE A NEW FENTANYL PATCH ON. PHYSICIAN TOLD FAMILY MEMBER THAT THIS WAS OKAY. FAMILY MEMBER IS TAKING OFF OLD FENTANYL PATCH AND PLACING NEW ONE ON THERE. PHYSICIAN IS AWARE.
[2018-04-03 15:35] LABS: ALBUMIN 2.2 g/dL (3.4-5.0); ANION GAP 16.9 mmol/L (8-16); BILIRUBIN - TOTAL 5.72 mg/dL (0.2-1.3); CALCIUM 8.1 mg/dL (8.5-10.1); CARBON DIOXIDE 24.5 mmol/L (21.0-32.0); CREATININE - SERUM 1.3 mg/dL (0.6-1.3); POTASSIUM - SERUM 3.4 mmol/L (3.5-5.1); PROTEIN - SERUM 6.6 g/dL (6.4-8.2)
--- NOTE | 2018-04-03 15:40 | NUR ---
PERFORMED IN AND OUT CATHETER ON PT TO GET CLEAN SPECIMEN. PT TOLERATED WELL.
[2018-04-03 15:48] LABS: PLATELET COUNT 272 10x3/uL (130-400)
[2018-04-03 16:00] VITALS: BP 85/45
[2018-04-03 16:07] LABS: APPEARANCE HAZY (CLEAR); BILIRUBIN 2+ (NEGATIVE); COLOR DK YELLOW (YELLOW); GLUCOSE NEGATIVE (NEGATIVE); KETONE NEGATIVE (NEGATIVE); NITRITE NEGATIVE (NEGATIVE); PROTEIN 1+ mg/dL (NEGATIVE)
[2018-04-03 16:08] LABS: BACTERIA MANY /hpf (NONE SEEN); EPITHELIAL CELLS 0-5 /hpf (0-5); RED CELLS - URINE 0-5 /hpf (0-5)
[2018-04-03 17:00] VITALS: BP 80/52
--- NOTE | 2018-04-03 17:18 | NUR ---
PATIENTS BP 96 SYSTOLIC, WILL HOLD LEVOPHED PER DR. VILLA
[2018-04-03 18:00] VITALS: BP 86/51
--- NOTE | 2018-04-04 00:25 | NUR ---
PT A/OX4 BUT LETHARGIC. DOES NOT WANT TO ANSWER ASSESSMENT QUESTIONS, BUT INSTEAD WANTS DAUGHTER TO ANSWER QUESTIONS IN THE AM. WILL CONTINUE POC.
--- NOTE | 2018-04-04 02:20 | NUR ---
ANSWERED CALL LIGHT. PT WANTED TO GO TO BATHROOM. UP WITH ASSISTANCE. BACK TO BED WITH ASSIST. WILL CONTINUE POC.
[2018-04-04 02:43] VITALS: BP 91/58; BMI 22.5
--- NOTE | 2018-04-04 04:28 | NUR ---
TECH INFORMED RN THAT PTS BP IS 84/50.
[2018-04-04 04:58] VITALS: BP 84/50
--- NOTE | 2018-04-04 04:59 | NUR ---
PT POLITELY REFUSES TO ANSWER HX AND MED REC QUESTIONS AND REFERS RN TO DAUGHTER WHO ISNT PRESENT.
[2018-04-04 06:21] LABS: BASOPHILS 0.2 % (0-2); EOSINOPHILS 0.3 % (0-7); HEMATOCRIT 28.1 % (36.0-48.0); HEMOGLOBIN 9.2 g/dL (12-16); IMMATURE GRANULOCYTES 0.2 % (0-5); LYMPHOCYTES 8.5 % (15-50); MCH 30.3 pg (26.0-34.0); MCHC 32.7 g/dL (31.0-37.0); MCV 92.4 fL (80.0-100.0); MEAN PLATELET VOLUME 9.3 fL (7.4-10.4); MONOCYTES 5.7 % (2-11); NEUTROPHILS 85.1 % (40-80); PLATELET COUNT 256 10x3/uL (130-400); RBC 3.04 10x6/uL (4.00-5.40); RDW 14.2 % (11.5-14.5); WBC 12.4 10x3/uL (4.8-10.8)
[2018-04-04 06:29] LABS: ANION GAP 13.4 mmol/L (8-16); POTASSIUM - SERUM 3.4 mmol/L (3.5-5.1)
[2018-04-04 06:30] LABS: CREATININE - SERUM 0.8 mg/dL (0.6-1.3)
--- NOTE | 2018-04-04 07:45 | NUR ---
PATIENT IN BED WITH IV INTACT. NO COMPLAINTS OR SIGNS OF DISTRESS. CALL LIGHT WITHIN REACH.
[2018-04-04 08:45] VITALS: BP 101/59
--- NOTE | 2018-04-04 10:15 | NUR ---
PATIENT IN BED WITH IV INTACT. NO COMPLAINTS OR SIGNS OF DISTRESS. CALL LIGHT WITHIN REACH. FAMILY AT BEDSIDE.
--- NOTE | 2018-04-04 11:31 | MORECARE ---
CASE MANAGEMENT DISCHARGE SUMMARY PATIENT: JULISSA GARCIA UNIT: [id number] ADM DATE: 04/03/18 AGE: 73 : 43 SEX: F ROOM/BED: D.[facility] AUTHOR: YOAV SHERMAN PHYSICIAN: REFERRING PHYSICIAN: AVA CHRISTINE MD DATE OF SERVICE: 04/04/18 Discharge Plan Patient Name: JULISSA GARCIA Facility: [facility]:[place] : 1945 Planned Disposition: Home with Hospice Anticipated Discharge Date: 04/04/18 Discharge Date: Expected LOS: 1 Initial Reviewer: [email or web address] Initial Review Date: 04/04/2018 Generated: 04/04/18 12:31 pm External Providers External Provider: [facility] *(provides [facility] Next Contact Date: Service Request Date: Service Type: Resolution: Reviewer: Comments: Patient Name: JULISSA GARCIA Page 02661 at 1131 All edits/amendments must be made on the electronic document DICTATION DATE: 04/04/18 1130 PUBLICATIONS INSPECTOR: STACY 04/04/18 1130 RPT#: [id number] DC DATE: STATUS: ADM IN [facility] [address] [place] [address] END OF REPORT
--- NOTE | 2018-04-04 11:38 | MORECARE ---
CASE MANAGEMENT DISCHARGE SUMMARY PATIENT: JULISSA GARCIA UNIT: [id number] ADM DATE: 04/03/18 AGE: 73 : 43 SEX: F ROOM/BED: D.[facility] AUTHOR: YOAV SHERMAN PHYSICIAN: REFERRING PHYSICIAN: AVA CHRISTINE MD DATE OF SERVICE: 04/04/18 Discharge Plan Patient Name: JULISSA GARCIA Facility: [facility]:[place] : 1945 Planned Disposition: Home with Hospice Anticipated Discharge Date: 04/04/18 Discharge Date: Expected LOS: 1 Initial Reviewer: [email or web address] Initial Review Date: 04/04/2018 Generated: 04/04/18 12:38 pm DCPIA - Discharge Planning Initial Assessment Updated by [email or web address]: Melissa Romero on 04/04/18 11:33 am * Is the patient Alert and Oriented? Yes * How many steps to enter\exit or inside your home? 0/0 * PCP Dr. Munoz * Pharmacy [facility] in [place] * Preadmission Environment Home with Family * ADLs Independent * Equipment Nebulizer Other * Other Equipment Call button * List name and contact numbers for known caregivers / representatives who currently or will assist patient after discharge: Marissa Bernal [facility] - [phone] * Verbal permission to speak to the caregivers and representatives has been obtained from the patient. Yes * Community resources currently utilized Hospice Home * Please name any agencies selected above. [facility] * Additional services required to return to the preadmission environment? Yes * Can the patient safely return to the preadmission environment? Yes * Has this patient been hospitalized within the prior 30 days at any hospital? No Last DP export: 04/04/18 10:31 a Patient Name: JULISSA GARCIA Page 26082 at 1138 All edits/amendments must be made on the electronic document DICTATION DATE: 04/04/18 1138 FOOD SERVICE REPRESENTATIVE: STACY 04/04/18 1138 RPT#: [id number] DC DATE: STATUS: ADM IN [facility] [address] [place] [address] END OF REPORT
--- NOTE | 2018-04-04 11:45 | MORECARE ---
CASE MANAGEMENT DISCHARGE SUMMARY PATIENT: JULISSA GARCIA UNIT: [id number] ADM DATE: 04/03/18 AGE: 73 : 43 SEX: F ROOM/BED: D.2233 AUTHOR: YOAV SHERMAN PHYSICIAN: REFERRING PHYSICIAN: AVA CHRISTINE MD DATE OF SERVICE: 04/04/18 Discharge Plan Patient Name: JULISSA GARCIA Facility: [facility]:[place] : 1945 Planned Disposition: Home with Hospice Anticipated Discharge Date: 04/04/18 Discharge Date: Expected LOS: 1 Initial Reviewer: [email or web address] Initial Review Date: 04/04/2018 Generated: 04/04/18 12:45 pm Comments DCP- Discharge Planning Updated by [email or web address]: Melissa Romero on 04/04/18 10:[address] Patient Name: JULISSA GARCIA Admission Status: ER Accout number: [id number] Admission Date: 04-03-2018 : 1945 Admission Diagnosis: Attending: AVA CHRISTINE Current LOS: 1 Anticipated DC Date: 04-04-2018 Planned Disposition: Home with Hospice Primary Insurance: MEDICARE A & B Discharge Planning Comments: CM met with patient and her daughter per daughter's request to inquire about changing her Hospice Agency. The daughter states she has been unhappy with the Hospice company they are using at home. Daughter states she is using [facility], they were a referral from a friend. I called [facility], she is not their client. I called and spoke to Justin at [facility] and she is their client. Justin had a nurse call the daughter to discuss the issues and the daughter and mother has decided to transfer their Hospice care to [facility]. I called and spoke to Nadia at [facility] and she states after they sign the transfer form, she will send a nurse to come and speak with patient and daughter, they are in agreement to this. CM will continue to follow and assist with discharge planning/needs. Metal Bonding Crib Attendant: Melissa Romero DCPIA - Discharge Planning Initial Assessment Updated by [email or web address]: Melissa Romero on 04/04/18 11:33 am * Is the patient Alert and Oriented? Yes * How many steps to enter\exit or inside your home? 0/0 * PCP Dr. Munoz * Pharmacy [facility] in [place] * Preadmission Environment Home with Family * ADLs Independent * Equipment Nebulizer Other * Other Equipment Call button * List name and contact numbers for known caregivers / representatives who currently or will assist patient after discharge: Marissa Bernal [facility] - [phone] * Verbal permission to speak to the caregivers and representatives has been obtained from the patient. Yes * Community resources currently utilized Hospice Home * Please name any agencies selected above. [facility] * Additional services required to return to the preadmission environment? Yes * Can the patient safely return to the preadmission environment? Yes * Has this patient been hospitalized within the prior 30 days at any hospital? No Last DP export: 04/04/18 10:38 a Patient Name: JULISSA GARCIA Page 29163 at 1145 All edits/amendments must be made on the electronic document DICTATION DATE: 04/04/18 1144 SOLAR ENERGY SALES SPECIALIST: DM 04/04/18 1144 RPT#: [id number] DC DATE: STATUS: ADM IN [facility] [address] [place] [address] END OF REPORT
[2018-04-04 12:47] VITALS: BP 115/67
[2018-04-04 14:13] VITALS: Ht 165.1 cm; Wt 61.2 kg
--- NOTE | 2018-04-04 15:59 | MORECARE ---
CASE MANAGEMENT DISCHARGE SUMMARY PATIENT: JULISSA GARCIA UNIT: [id number] ADM DATE: 04/03/18 AGE: 73 : 43 SEX: F ROOM/BED: D.2233 AUTHOR: LANEDOC PHYSICIAN: REFERRING PHYSICIAN: AVA CHRISTINE MD DATE OF SERVICE: 04/04/18 Discharge Plan Patient Name: JULISSA GARCIA Facility: [facility]:[place] : 1945 Planned Disposition: Home with Hospice Anticipated Discharge Date: 04/04/18 Discharge Date: Expected LOS: 1 Initial Reviewer: [email or web address] Initial Review Date: 04/04/2018 Generated: 04/04/18 4:59 pm Comments DCP- Discharge Planning Updated by [email or web address]: Melissa Romero on 04/04/18 2:52 pm [facility] here and paperwork signed, I faxed it to Nadia with [facility]. She is sending a nurse out to speak with daughter. CM to continue to follow and assist with discharge planning/needs. DCP- Discharge Planning Updated by [email or web address]: Melissa Romero on 04/04/18 10:[address] Patient Name: JULISSA GARCIA Admission Status: ER Accout number: [id number] Admission Date: 04-03-2018 : 1945 Admission Diagnosis: Attending: AVA CHRISTINE Current LOS: 1 Anticipated DC Date: 04-04-2018 Planned Disposition: Home with Hospice Primary Insurance: MEDICARE A & B Discharge Planning Comments: CM met with patient and her daughter per daughter's request to inquire about changing her Hospice Agency. The daughter states she has been unhappy with the Hospice company they are using at home. Daughter states she is using [facility], they were a referral from a friend. I called [facility], she is not their client. I called and spoke to Justin at [facility] and she is their client. Justin had a nurse call the daughter to discuss the issues and the daughter and mother has decided to transfer their Hospice care to [facility]. I called and spoke to Nadia at [facility] and she states after they sign the transfer form, she will send a nurse to come and speak with patient and daughter, they are in agreement to this. CM will continue to follow and assist with discharge planning/needs. Scuba Diver: Melissa Romero DCPIA - Discharge Planning Initial Assessment Updated by [email or web address]: Melissa Romero on 04/04/18 11:33 am * Is the patient Alert and Oriented? Yes * How many steps to enter\exit or inside your home? 0/0 * PCP Dr. Munoz * Pharmacy [facility] in [place] * Preadmission Environment Home with Family * ADLs Independent * Equipment Nebulizer Other * Other Equipment Call button * List name and contact numbers for known caregivers / representatives who currently or will assist patient after discharge: Marissa Bernal [facility] - [phone] * Verbal permission to speak to the caregivers and representatives has been obtained from the patient. Yes * Community resources currently utilized Hospice Home * Please name any agencies selected above. [facility] * Additional services required to return to the preadmission environment? Yes * Can the patient safely return to the preadmission environment? Yes * Has this patient been hospitalized within the prior 30 days at any hospital? No Last DP export: 04/04/18 10:45 a Patient Name: JULISSA GARCIA Page 15312 at 1559 All edits/amendments must be made on the electronic document DICTATION DATE: 04/04/181557 BAKERY SALES CLERK: STACY 04/04/181557 RPT#: [id number] HI DATE: STATUS: ADM IN [facility] [address] [place] [address] END OF REPORT
[2018-04-04 16:53] VITALS: BP 116/61
--- NOTE | 2018-04-04 18:58 | NUR ---
PATIENT IN BED WITH IV INTACT. NO COMPLAINTS OR SIGNS OF DISTRESS. CALL LIGHT WITHIN REACH.
[2018-04-04 20:00] VITALS: BP 138/80
[2018-04-05] VITALS: BP 105/56
--- NOTE | 2018-04-05 01:23 | NUR ---
PT A/OX4. C/O BEING COLD. GOT BLANKETS. LAB CALLED WITH [facility] OF [facility] IN BLOOD. CALLED DOC, OBTAINED TELE ORDER FOR 1GM VANC Q12 AND PHARM TO DOSE. WILL CONTINUE POC.
[2018-04-05 04:00] VITALS: BP 100/64
[2018-04-05] MEDS ORDERED: LEVAQUIN750 MG PO (08:57)
[2018-04-05 09:33] VITALS: BP 92/47
--- NOTE | 2018-04-05 13:01 | MORECARE ---
CASE MANAGEMENT DISCHARGE SUMMARY PATIENT: JULISSA GARCIA UNIT: [id number] ADM DATE: 04/03/18 AGE: 73 : 43 SEX: F ROOM/BED: D.2233 AUTHOR: LANEDOC PHYSICIAN: REFERRING PHYSICIAN: AVA CHRISTINE MD DATE OF SERVICE: 04/05/18 Discharge Plan Patient Name: JULISSA GARCIA Facility: [facility]:[place] : 1945 Planned Disposition: Home with Hospice Anticipated Discharge Date: 04/04/18 Discharge Date: Expected LOS: 1 Initial Reviewer: [email or web address] Initial Review Date: 04/04/2018 Generated: 04/05/18 2:01 pm Comments DCP- Discharge Planning Updated by [email or web address]: Melissa Romero on 04/05/18 12:[address] Spoke with Nadia at [facility], they will admit her when she is discharged home. Awaiting discharge until sensitivity on blood culture is back. I called Dinora with the lab and she states a sensitivity report should be available in the morning. CM will continue to follow and assist with discharge planning/needs. DCP- Discharge Planning Updated by [email or web address]: Melissa Romero on 04/04/18 2:[address] [facility] here and paperwork signed, I faxed it to Nadia with [facility]. She is sending a nurse out to speak with daughter. CM to continue to follow and assist with discharge planning/needs. DCP- Discharge Planning Updated by [email or web address]: Melissa Romero on 04/04/18 10:[address] Patient Name: JULISSA GARCIA Admission Status: ER Accout number: [id number] Admission Date: 04-03-2018 : 1945 Admission Diagnosis: Attending: AVA CHRISTINE Current LOS: 1 Anticipated DC Date: 04-04-2018 Planned Disposition: Home with Hospice Primary Insurance: MEDICARE A & B Discharge Planning Comments: CM met with patient and her daughter per daughter's request to inquire about changing her Hospice Agency. The daughter states she has been unhappy with the Hospice company they are using at home. Daughter states she is using [facility], they were a referral from a friend. I called [facility], she is not their client. I called and spoke to Justin at [facility] and she is their client. Justin had a nurse call the daughter to discuss the issues and the daughter and mother has decided to transfer their Hospice care to [facility]. I called and spoke to Nadia at [facility] and she states after they sign the transfer form, she will send a nurse to come and speak with patient and daughter, they are in agreement to this. CM will continue to follow and assist with discharge planning/needs. Learning And Development Manager: Melissa Romero DCPIA - Discharge Planning Initial Assessment Updated by [email or web address]: Melissa Romero on 04/04/18 11:33 am * Is the patient Alert and Oriented? Yes * How many steps to enter\exit or inside your home? 0/0 * PCP Dr. Munoz * Pharmacy [facility] in [place] * Preadmission Environment Home with Family * ADLs Independent * Equipment Nebulizer Other * Other Equipment Call button * List name and contact numbers for known caregivers / representatives who currently or will assist patient after discharge: Marissa Bernal [facility] - [phone] * Verbal permission to speak to the caregivers and representatives has been obtained from the patient. Yes * Community resources currently utilized Hospice Home * Please name any agencies selected above. [facility] * Additional services required to return to the preadmission environment? Yes * Can the patient safely return to the preadmission environment? Yes * Has this patient been hospitalized within the prior 30 days at any hospital? No Last DP export: 04/04/18 2:59 p Patient Name: JULISSA GARCIA Page 30634 at 1301 All edits/amendments must be made on the electronic document DICTATION DATE: 04/05/18 1301 MOTOR ADJUSTER: STACY 04/05/18 1301 RPT#: [id number] DC DATE: STATUS: ADM IN [facility] [address] [place] [address] END OF REPORT
[2018-04-05 14:06] VITALS: BP 124/71
[2018-04-05 18:33] VITALS: BP 127/74
--- NOTE | 2018-04-05 19:15 | NUR ---
RECEIVED CARE FROM DAY NURSE. LYING IN BED. ASSISTED PT TO BATHROOM. REPORTS NO OTHER NEEDS AT THIS TIME. CALL LIGHT AT SIDE. PT STATES SHE DOESNT WANT ANY MORE MORPHINE BECAUSE IT MADE HER HEAD TO MESSED UP. NO OTHER NEEDS VOICED AT THIS TIME.
[2018-04-05 20:00] VITALS: BP 127/73
[2018-04-06] VITALS: BP 127/66
--- NOTE | 2018-04-06 02:36 | NUR ---
ASSESSED, PT IS ASLEEP WITH EASY RESPIRATIONS AND NO DISTRESS NOTED.
[2018-04-06 04:00] VITALS: BP 119/76
[2018-04-06 08:59] VITALS: BP 129/21
--- NOTE | 2018-04-06 19:15 | NUR ---
RECEIVED CARE FROM DAY NURSE. SITTING UP IN BED WITH COMPANY AT SIDE. REPORTS NO NEEDS AT THIS TIME. CALL LIGHT AT SIDE. IV INFUSING TO PATENT LEFT IP.
[2018-04-06 19:56] VITALS: BP 129/71
--- NOTE | 2018-04-06 21:58 | NUR ---
PT REPORTS IBETH BROUGHT HER PAIN PATCH TODAY AROUND 2PM AND PUT IT ON HER. STOCK FENTANYL PATCH RETURNED.
[2018-04-07] VITALS: BP 115/67
[2018-04-07 04:00] VITALS: BP 100/60
--- NOTE | 2018-04-07 05:45 | NUR ---
RN NOTE: PT RESTING IN SUPINE POSITION WITH EYES CLOSED. LEFT IP PATENT WITH NS INFUSING AT KVO. WILL CONTINUE TO MONITOR FOR NEEDS. CALL LIGHT WITHIN REACH.
[2018-04-07 08:32] VITALS: BP 122/68
--- NOTE | 2018-04-07 10:23 | NUR ---
NPO AT THIS TIME PREP COMPLETE FOR CT ABDOMEN AND COMPLETED. LT MEDIPORT INTACT. PT. STATED USED DURAGESIC FROM HOME. ABDOMEN SOFT WITH BS NOTED. DENIES ANY PAIN OR DISCOMFORT AT THIS TIME. UP TO BATHROOM AD ELSIE. ENCOURAGED TO USE CALL LIGHT FOR ASSIST.
[2018-04-07 16:58] VITALS: BP 127/69
--- NOTE | 2018-04-07 19:15 | NUR ---
RECEIVED CARE FROM DAY NURSE. LYING IN BED. REPORTS NO NEEDS AT THIS TIME. IV INFUSING TO PATENT LEFT IP. CALL LIGHT AT SIDE.
[2018-04-07 20:00] VITALS: BP 125/73
--- NOTE | 2018-04-07 20:48 | NUR ---
PT REPORTS SHE WOULD LIKE DR SOMMER TO CALL AND SPEAK WITH HER DAUGHTER (IBETH) AT [phone]
--- NOTE | 2018-04-08 03:33 | NUR ---
RESTING IN BED NO APPARENT DISTRESS CALL LIGHT IN REACH
[2018-04-08 04:00] VITALS: BP 130/71
[2018-04-08 06:26] LABS: BASOPHILS 0.5 % (0-2); EOSINOPHILS 1.4 % (0-7); HEMATOCRIT 30.8 % (36.0-48.0); HEMOGLOBIN 10.1 g/dL (12-16); IMMATURE GRANULOCYTES 1.5 % (0-5); LYMPHOCYTES 16.5 % (15-50); MCH 29.7 pg (26.0-34.0); MCHC 32.8 g/dL (31.0-37.0); MCV 90.6 fL (80.0-100.0); MEAN PLATELET VOLUME 9.4 fL (7.4-10.4); MONOCYTES 8.9 % (2-11); NEUTROPHILS 71.2 % (40-80); RDW 14.6 % (11.5-14.5); WBC 7.4 10x3/uL (4.8-10.8)
[2018-04-08 06:27] LABS: PLATELET COUNT 320 10x3/uL (130-400)
[2018-04-08 06:52] LABS: ALBUMIN 1.9 g/dL (3.4-5.0); ALKALINE PHOSPHATASE 722 U/L (46-116); ALT (SGPT) 63 U/L (10-68); BILIRUBIN - TOTAL 10.14 mg/dL (0.2-1.3); CALC OSMOLALITY 274 mosm/kg (275-300); CALCIUM 8.2 mg/dL (8.5-10.1); CARBON DIOXIDE 28.1 mmol/L (21.0-32.0); CHLORIDE - SERUM 102 mmol/L (98-107); CREATININE - SERUM 0.6 mg/dL (0.6-1.3); GLUCOSE 94 mg/dL (74-106); POTASSIUM - SERUM 3.2 mmol/L (3.5-5.1); PROTEIN - SERUM 5.9 g/dL (6.4-8.2); SODIUM 139 mmol/L (136-145); UREA NITROGEN 5 mg/dL (7-18); eGFR NON AFRICAN AMERICAN > 90 mL/min (90-120)
[2018-04-08 08:25] VITALS: BP 133/71
--- NOTE | 2018-04-08 10:31 | NUR ---
ALERT AND LETHARGIC AND REQUIRES ASSSIT TO BATHROOM. SKIN JAUNDICED WITH O2 N/C AT 2 LITERS. PT. NPO FOR ERCP WITH CONSENT SIGNED. LT. MEDIPORT INTACT.WITH IVF INFUSING. ENCOURAGED TO USE CALL LIGHT FOR ASSIST.
--- NOTE | 2018-04-08 15:08 | NUR ---
NUTRITION F/U PT CURRENTLY NPO FOR PROCEDURE. WILL PROVIDE DIET WHEN RESUMED, HONOR FOOD PREFERENCES. RD FOLLOWING
--- NOTE | 2018-04-08 17:05 | NUR ---
3.8CC CONTRAST USED 3.52 MIN FLURO USED
--- NOTE | 2018-04-08 19:10 | NUR ---
DENIES NEEDS IV TO MEDIPORT AT RATE OF 20 NO PEDAL EDEMA ALERET BED LOW AND SRX2 CALL LIGHT IS IN REACH
[2018-04-08 20:00] VITALS: BP 128/79
--- NOTE | 2018-04-08 22:36 | NUR ---
SPOKE WITH DAUGHTER, CORNEL WONG REGARDING FALL AND INTERVETIONS IN PLACE NOW TO ALERT NURSING STAFF OF FALL PRECAUTION. DAUGHTER STATES " i TOLD HER NOT TO GET UP BY HERSELF WHEN I LEFT, SHE TOLD ME SHE WOULDNT. SHE WAS SO OUT OF IT B/C OF THE MEDS..."
--- NOTE | 2018-04-08 22:36 | NUR ---
SPOKE WITH CORNEL MALDONADO AND ORDERS RECIEVED AND ENTERED FOR LUMBAR AND COCYX
--- NOTE | 2018-04-09 00:13 | NUR ---
CHOOSING TO HOLD PHENERGAN AT THIS TIME. DO NOT WANT TO SEDATE
--- NOTE | 2018-04-09 02:54 | NUR ---
EYES CLOSED RESPIRATIONS WITH EASE AND UNLABORED. SR UP X2 CALL LIGHT WITHIN REACH.
[2018-04-09 04:00] VITALS: BP 137/77
--- NOTE | 2018-04-09 05:22 | NUR ---
PT NPO FOR PROCEDURE HOLDING SYNTHRIOD THIS AM ANF ZOFRAN AND PHENERGAN WELL PT IS NOT NASEATED AT THIS TIME
[2018-04-09 06:12] LABS: BASOPHILS 0.5 % (0-2); EOSINOPHILS 1.1 % (0-7); HEMATOCRIT 31.4 % (36.0-48.0); HEMOGLOBIN 10.1 g/dL (12-16); IMMATURE GRANULOCYTES 1.9 % (0-5); LYMPHOCYTES 11.8 % (15-50); MCH 29.2 pg (26.0-34.0); MCHC 32.2 g/dL (31.0-37.0); MCV 90.8 fL (80.0-100.0); MEAN PLATELET VOLUME 9.5 fL (7.4-10.4); MONOCYTES 8.4 % (2-11); NEUTROPHILS 76.3 % (40-80); PLATELET COUNT 368 10x3/uL (130-400); RBC 3.46 10x6/uL (4.00-5.40); RDW 14.8 % (11.5-14.5)
[2018-04-09 06:18] LABS: WBC 10.1 10x3/uL (4.8-10.8)
[2018-04-09 06:22] LABS: ALBUMIN 1.8 g/dL (3.4-5.0); ALKALINE PHOSPHATASE 817 U/L (46-116); ALT (SGPT) 62 U/L (10-68); BILIRUBIN - TOTAL 12.22 mg/dL (0.2-1.3); CALC OSMOLALITY 275 mosm/kg (275-300); CALCIUM 7.9 mg/dL (8.5-10.1); CARBON DIOXIDE 27.4 mmol/L (21.0-32.0); CHLORIDE - SERUM 103 mmol/L (98-107); CREATININE - SERUM 0.7 mg/dL (0.6-1.3); GLUCOSE 84 mg/dL (74-106); POTASSIUM - SERUM 3.2 mmol/L (3.5-5.1); PROTEIN - SERUM 5.9 g/dL (6.4-8.2); SODIUM 140 mmol/L (136-145); eGFR NON AFRICAN AMERICAN 86 mL/min (90-120)
[2018-04-09 06:23] LABS: UREA NITROGEN 8 mg/dL (7-18)
--- NOTE | 2018-04-09 07:30 | NUR ---
UP TO BR WITH MIN ASSIST. VOIDED WITHOUT DIFFICULTY. REPOSITIONED IN BED FOR COMFORT. FAMILY AT BEDSIDE.
[2018-04-09 07:41] VITALS: BP 126/75
[2018-04-09 08:30] VITALS: BP 126/75
--- NOTE | 2018-04-09 08:31 | NUR ---
AWAKE AND ALERT. ORIENTED X3. SOME CONFUSION NOTED AT TIMES. LUNGS ARE CLEAR BILATERALLY, NO COUGH NOTED. SKIN IS INTACT WITHOUT REDNESS. LARGE BRUISE NOTED TO LEFT BUTTOCK. LEFT PORT IS PATENT WITHOUT REDNESS AT INSERTION SITE. DENIES NEEDS.
--- NOTE | 2018-04-09 09:30 | NUR ---
REQUESTED PAIN MED FOR PAIN TO LOWER BACK. NON AVAILABLE. WILL ASK
[2018-04-09 12:30] VITALS: BP 148/80
--- NOTE | 2018-04-09 14:44 | NUR ---
UP TO BR WITH ONE PERSON MIN ASSIST. VOIDED WITHOUT DIFFICULTY. REPOSITIONED IN BED FOR COMFORT.
--- NOTE | 2018-04-09 16:25 | NUR ---
REQUESTED AND GIVNE ONE SOMA PO FOR C/O LOWER BACK PAIN. ALSO USED PREP H PER RECTUM FOR HEMORROIDAL PAIN. WILL MONITOR.
[2018-04-09 18:05] VITALS: BP 149/77
--- NOTE | 2018-04-09 19:10 | NUR ---
HAD APPROXIMATLY 300CC EMESIS. SKIN CARE AND LINENS CHANGED PER STAFF. UP TO BR WITH ONE PERSON MIN ASSIST. VOIDED WITHOUT DIFFICULTY. DENIES NEEDS. NO CHANGES NOTED.
--- NOTE | 2018-04-09 19:25 | NUR ---
AT REST WITH EYES CLOSED. SRX2 AND BED LOW CALL LIGHT IN REACH RESP EVEN AND UNLABERED.
--- NOTE | 2018-04-09 19:45 | NUR ---
DURIGESIC PATCH CHANGE NOW IS PLACED ON LEFT SHOULDER...SKIN WARM AND DRY PT REMAINS JAUND. LCTA BOWEL SOUNDS X4
[2018-04-10] VITALS: BP 119/62
[2018-04-10 04:48] LABS: BASOPHILS 0.2 % (0-2); EOSINOPHILS 1.9 % (0-7); HEMATOCRIT 28.4 % (36.0-48.0); HEMOGLOBIN 9.4 g/dL (12-16); IMMATURE GRANULOCYTES 1.3 % (0-5); LYMPHOCYTES 11.5 % (15-50); MCH 29.7 pg (26.0-34.0); MCHC 33.1 g/dL (31.0-37.0); MCV 89.9 fL (80.0-100.0); MEAN PLATELET VOLUME 9.1 fL (7.4-10.4); MONOCYTES 6.6 % (2-11); NEUTROPHILS 78.5 % (40-80); PLATELET COUNT 318 10x3/uL (130-400); RBC 3.16 10x6/uL (4.00-5.40); RDW 15.1 % (11.5-14.5)
--- NOTE | 2018-04-10 04:50 | NUR ---
BLOOD DRAWN FROM MED PORT AND FLUSHED WITH 10cc SALINE AND THEN IV FLUIDS CONTINUED RESIDENT RESTING WITH EYES CLOSED BED LOW AND SRX2 AND CALL LIGHT IS IN REACH
[2018-04-10 05:17] LABS: ALBUMIN 1.8 g/dL (3.4-5.0); ALKALINE PHOSPHATASE 816 U/L (46-116); ALT (SGPT) 58 U/L (10-68); BILIRUBIN - TOTAL 14.57 mg/dL (0.2-1.3); CALC OSMOLALITY 276 mosm/kg (275-300); CALCIUM 7.9 mg/dL (8.5-10.1); CARBON DIOXIDE 29.8 mmol/L (21.0-32.0); CHLORIDE - SERUM 101 mmol/L (98-107); CREATININE - SERUM 0.6 mg/dL (0.6-1.3); GLUCOSE 114 mg/dL (74-106); POTASSIUM - SERUM 3.5 mmol/L (3.5-5.1); PROTEIN - SERUM 5.6 g/dL (6.4-8.2); SODIUM 138 mmol/L (136-145); eGFR NON AFRICAN AMERICAN > 90 mL/min (90-120)
[2018-04-10 05:20] VITALS: BP 116/66
[2018-04-10 05:20] LABS: UREA NITROGEN 12 mg/dL (7-18)
--- NOTE | 2018-04-10 08:17 | NUR ---
AWAKE AND ALERT. ORIENTED X3. NO C/O AT THIS TIME. LUNGS ARE CLEAR BILATERALLY, OCCASSIONAL DRY COUGH NOTED. SKIN IS INTACT WITHOUT REDNESS. LEFT PORT PATENT WITHOUT REDNESS AT INSERTION SITE. DENIES NEEDS.
--- NOTE | 2018-04-10 09:00 | NUR ---
ATE ONLY A FEW BITES OF BREAKFAST. CONTINUES TO C/O NAUSEA. WILL MONITOR.
[2018-04-10 09:07] VITALS: BP 122/68; BP 140/75
--- NOTE | 2018-04-10 10:00 | NUR ---
STILL WITH C/O NAUSEA. OCCASSIONAL EMESIS NOTED.
--- NOTE | 2018-04-10 11:03 | MORECARE ---
CASE MANAGEMENT DISCHARGE SUMMARY PATIENT: JULISSA GARCIA UNIT: [id number] ADM DATE: 04/03/18 AGE: 73 : 43 SEX: F ROOM/BED: D.2233 AUTHOR: LANE,DOC PHYSICIAN: REFERRING PHYSICIAN: AVA CHRISTINE MD DATE OF SERVICE: 04/10/18 Discharge Plan Patient Name: JULISSA GARCIA Facility: [facility]:[place] : 1945 Planned Disposition: Home with Hospice Anticipated Discharge Date: 04/04/18 Discharge Date: Expected LOS: 1 Initial Reviewer: [email or web address] Initial Review Date: 04/04/2018 Generated: 04/10/18 12:03 pm Comments DCP- Discharge Planning Updated by [email or web address]: Sarahi Rios on 04/10/18 9:[address] Patient discharging home today and [facility] will admit when they get home. IMM served and explained. Patient's daughter will be the one to drive her home. Nadia is the person I spoke with at [facility] and I faxed over clinical information. CM will continue to follow and assist with DC planning as needed DCP- Discharge Planning Updated by [id number]: Melissa Romero on 04/05/18 12:[address] Spoke with Nadia at [facility], they will admit her when she is discharged home. Awaiting discharge until sensitivity on blood culture is back. I called Dinora with the lab and she states a sensitivity report should be available in the morning. CM will continue to follow and assist with discharge planning/needs. DCP- Discharge Planning Updated by [id number]: Melissa Romero on 04/04/18 2:[address] [facility] here and paperwork signed, I faxed it to Nadia with [facility]. She is sending a nurse out to speak with daughter. CM to continue to follow and assist with discharge planning/needs. DCP- Discharge Planning Updated by [email or web address]: Melissa Romero on 04/04/18 10:[address] Patient Name: JULISSA GARCIA Admission Status: ER Accout number: [id number] Admission Date: 04-03-2018 : 1945 Admission Diagnosis: Attending: AVA CHRISTINE Current LOS: 1 Anticipated DC Date: 04-04-2018 Planned Disposition: Home with Hospice Primary Insurance: MEDICARE A & B Discharge Planning Comments: CM met with patient and her daughter per daughter's request to inquire about changing her Hospice Agency. The daughter states she has been unhappy with the Hospice company they are using at home. Daughter states she is using [facility], they were a referral from a friend. I called [facility], she is not their client. I called and spoke to [place] at [facility] and she is their client. Justin had a nurse call the daughter to discuss the issues and the daughter and mother has decided to transfer their Hospice care to [facility]. I called and spoke to Nadia at [facility] and she states after they sign the transfer form, she will send a nurse to come and speak with patient and daughter, they are in agreement to this. CM will continue to follow and assist with discharge planning/needs. Host Coordinator: Melissa Romero [facility] - Discharge Planning Initial Assessment Updated by [email or web address]: Melissa Romero on 04/04/18 11:33 am * Is the patient Alert and Oriented? Yes * How many steps to enter\exit or inside your home? 0/0 * PCP Dr. Munoz * Pharmacy [facility] in [place] * Preadmission Environment Home with Family * ADLs Independent * Equipment Nebulizer Other * Other Equipment Call button * List name and contact numbers for known caregivers / representatives who currently or will assist patient after discharge: Marissa Bernal [facility] - [phone] * Verbal permission to speak to the caregivers and representatives has been obtained from the patient. Yes * Community resources currently utilized Hospice Home * Please name any agencies selected above. [facility] * Additional services required to return to the preadmission environment? Yes * Can the patient safely return to the preadmission environment? Yes * Has this patient been hospitalized within the prior 30 days at any hospital? No Coverage Notice Reviewer: [email or web address] Chai Rios Notice Issued Date-Time: 04/10/2018 10:50 Notice Type: IM Discharge Notice Notice Delivered To: Patient Relationship to Patient: Director Consumer Name: Delivery Method: HAND - Hand Delivered Natty Days: Prior Verbal Notification: Recipient Understood Notice: Yes Recipient Signature: Yes Med Rec Note Co-signed by Attending: Coverage Notice Comment: Last DP export: 04/05/18 12:01 pm Patient Name: JULISSA GARCIA Page [id number] at 1103 All edits/amendments must be made on the electronic document DICTATION DATE: 04/10/181101 MACHINE CLOTHING WORKER: STACY 04/10/18 110 RPT#: [id number] DC DATE: STATUS: ADM IN [facility] [address] [place] [address] END OF REPORT
--- NOTE | 2018-04-10 11:58 | NUR ---
SPOKE WITH BLADIMIR GALINDO RE NAUSEA. NEW ORDERS RECEIVED.
[2018-04-10] MEDS ORDERED: PHENERGAN25 M1 PO (12:13)
--- NOTE | 2018-04-10 13:16 | NUR ---
NAUSEA IMPROVED AFTER PHENERGAN INJECTION. DISCHARGED TO HOME WITH FAMILY AMBULATORY. DISCHARGE INSTRUCTIONS GIVEN BOTH VERBALLY AND WRITTEN. ALL QUESTIONS ANSWERED. PATIENT AND FAMILY VERBALIZED UNDERSTANDING OF SAME.LEFT PORT HEPRANIZED AND NEEDLE D/C WITHOUT DIFFICULTY. ALL BELONGINGS WITH PATIENT. NEEDED PRESCRIPTIONS ESCRIBED TO PHARMACY OF CHOICE.
--- NOTE | 2018-04-12 09:08 | MORECARE ---
CASE MANAGEMENT DISCHARGE SUMMARY PATIENT: JULISSA GARCIA UNIT: [id number] ADM DATE: 04/03/18 AGE: 73 : 43 SEX: F ROOM/BED: D.2233 AUTHOR: LANE,DOC PHYSICIAN: REFERRING PHYSICIAN: AVA CHRISTINE MD DATE OF SERVICE: 04/12/18 Discharge Plan Patient Name: JULISSA GARCIA Facility: [facility]:[place] : 1945 Planned Disposition: Home with Hospice Anticipated Discharge Date: 04/04/18 Discharge Date: 04/10/2018 Expected LOS: 1 Initial Reviewer: [email or web address] Initial Review Date: 04/04/2018 Generated: 04/12/18 10:08 am Comments DCP- Discharge Planning Updated by [email or web address]: Sarahi Rios on 04/10/18 9:[address] Patient discharging home today and [facility] will admit when they get home. IMM served and explained. Patient's daughter will be the one to drive her home. Nadia is the person I spoke with at [facility] and I faxed over clinical information. CM will continue to follow and assist with DC planning as needed DCP- Discharge Planning Updated by [id number]: Melissa Romero on 04/05/18 12:[address] Spoke with Nadia at [facility], they will admit her when she is discharged home. Awaiting discharge until sensitivity on blood culture is back. I called Dinora with the lab and she states a sensitivity report should be available in the morning. CM will continue to follow and assist with discharge planning/needs. DCP- Discharge Planning Updated by [id number]: Melissa Romero on 04/04/18 2:[address] [facility] here and paperwork signed, I faxed it to Nadia with [facility]. She is sending a nurse out to speak with daughter. CM to continue to follow and assist with discharge planning/needs. DCP- Discharge Planning Updated by [id number]: Melissa Romero on 04/04/18 10:[address] Patient Name: JULISSA GARCIA Admission Status: ER Accout number: [id number] Admission Date: 04-03-2018 : 1945 Admission Diagnosis: Attending: AVA CHRISTINE Current LOS: 1 Anticipated DC Date: 04-04-2018 Planned Disposition: Home with Hospice Primary Insurance: MEDICARE A & B Discharge Planning Comments: CM met with patient and her daughter per daughter's request to inquire about changing her Hospice Agency. The daughter states she has been unhappy with the Hospice company they are using at home. Daughter states she is using [facility], they were a referral from a friend. I called [facility], she is not their client. I called and spoke to Justin at [facility] and she is their client. Justin had a nurse call the daughter to discuss the issues and the daughter and mother has decided to transfer their Hospice care to [facility]. I called and spoke to Nadia at [facility] and she states after they sign the transfer form, she will send a nurse to come and speak with patient and daughter, they are in agreement to this. CM will continue to follow and assist with discharge planning/needs. Retouching Operator: Melissa Romero [facility] - Discharge Planning Initial Assessment Updated by [email or web address]: Melissa Romero on 04/04/18 11:33 am * Is the patient Alert and Oriented? Yes * How many steps to enter\exit or inside your home? 0/0 * PCP Dr. Munoz * Pharmacy [facility] in [place] * Preadmission Environment Home with Family * ADLs Independent * Equipment Nebulizer Other * Other Equipment Call button * List name and contact numbers for known caregivers / representatives who currently or will assist patient after discharge: Marissa Bernal [facility] - [phone] * Verbal permission to speak to the caregivers and representatives has been obtained from the patient. Yes * Community resources currently utilized Hospice Home * Please name any agencies selected above. [facility] * Additional services required to return to the preadmission environment? Yes * Can the patient safely return to the preadmission environment? Yes * Has this patient been hospitalized within the prior 30 days at any hospital? No Coverage Notice Reviewer: [email or web address] Chai Rios Notice Issued Date-Time: 04/10/2018 10:50 Notice Type: IM Discharge Notice Notice Delivered To: Patient Relationship to Patient: Chef De Partie Name: Delivery Method: HAND - Hand Delivered Natty Days: Prior Verbal Notification: Recipient Understood Notice: Yes Recipient Signature: Yes Med Rec Note Co-signed by Attending: Coverage Notice Comment: Last DP export: 04/10/18 10:03 am Patient Name: JULISSA GARCIA Page [id number] at 0908 All edits/amendments must be made on the electronic document DICTATION DATE: 04/12/18907 THERAPIST ASST: STACY 04/12/18907 RPT#: [id number] DC DATE:04/10/18 STATUS: DIS IN [facility] [address] [place] [address] END OF REPORT
== END 2018-04-10 13:19 | disposition home health service (06) | DRG 871 ==
LOC: D.ER 13:18 → D.EDHOLD 18:33 → D.MS 18:33 → D.ICU 21:20 → D.MS 22:58
PROVIDERS: Family Medicine; Internal Medicine Gastroenterology; ADMIT Internal Medicine Nephrology
PROC: 0FJB8ZZ Inspection of Hepatobiliary Duct, Via Natural or Artificial Opening Endoscopic (ICD-10-PCS; principal; 2018-04-08 13:00)
DX: A41.9 Sepsis, unspecified organism (principal); K83.1 Obstruction of bile duct; N39.0 Urinary tract infection, site not specified; C18.9 Malignant neoplasm of colon, unspecified; C78.89 Secondary malignant neoplasm of other digestive organs; E03.9 Hypothyroidism, unspecified